=== PATIENT | female | born 1940 | race Caucasian/White ===

== ENCOUNTER 2019-05-28 13:14 | Inpatient (IN) | payer MEDICARE, BC ==
[2019-05-28] MEDS ORDERED: Azithromycin 500 mg/250 ml NS 500 MG/250 ML BAG IVPB ONE (13:27)
[2019-05-28] MEDS ORDERED: Piperacillin/Tazobac ADVAN(*) 3.375 GM in NS 0.9% 100 ML* 100 ML IVPB ONE (13:27)
[2019-05-28] MEDS ORDERED: NS 0.9% IV ONE (13:32)
--- NOTE | 2019-05-28 13:41 | ED ---
Complex/Multi-Sys Presentation - HPI Summary HPI Summary: An 79 y/o F arriving by car presents to ED with c/o hypotension, noted by niece at home to be 55/31. Found to be 70/41 at triage. Associated sx: fatigue, dysphagia. Pert PMHx: malignant neoplasm of cheek mucous membrane, squamous CA of skin and scalp. Pt is s/p chemotherapy at [facility] She receives radiation Rx in [place] and had recent surgery to her left neck. She has a bandage on her L neck under which is a wound that tunnels to inside her mouth and has drainage. Denies CP, SOB abd pain, nausea. Former smoker, no ETOH, no substance abuse. She now sees an oncologist in [place] and her last two radiation appointments are tomorrow and the next day. PMHx: DM, HTN, thyroid dz; she denies COPD. Patient has had multiple abd surgeries for diverticulitis where pt had a colostomy that was reversed and then needed more bowel resection, had a colostomy that was again reversed. Pt also had 3 hernia operations. Pt is on Eliquis for bilateral DVT's. Vitals at bedside: HR: 82 bpm, BP: 86/47, 90% O2. Home Medications Medication Instructions Recorded Confirmed Type Apixaban* [Eliquis*] 5 mg PO BID 05/28/19 05/28/19 History Cephalexin CAP* [Keflex 500 CAP*] 500 mg PO BID 05/28/19 05/28/19 History Levothyroxine TAB* [Synthroid TAB*] 150 mcg PO DAILY 05/28/19 05/28/19 History Morphine TAB (NF) [Morphine 30 MG 30 mg PO Q8HR PRN 05/28/19 05/28/19 History TAB (NF)] Oxycodone TAB(NF) [Oxycodone HCl 5 mg PO Q6H PRN 05/28/19 05/28/19 History 10 MG] - History Of Current Complaint Chief Complaint: EDWeakness Hx Obtained From: Patient, Other: - 2 nieces Onset/Duration: Still Present Timing: Constant Severity Currently: Severe Severity Initially: Severe Location: Pain At: - left neck Character: Dull Aggravating Factor(s): Nothing Alleviating Factor(s): Nothing Associated Signs And Symptoms: Positive: Other - pos: fatigue, dysphagia, weeping wound on L neck; neg CP, SOB, cough, fever, urinary sxs. Negative: Nausea, Abdominal Pain - Allergies/Home Medications Allergies/Adverse Reactions: Allergies Allergy/AdvReac Type Severity Reaction Status Date / Time No Known Allergies Allergy Verified 05/28/19 15:21 Home Medications: Home Medications Apixaban* [Eliquis*] 5 mg PO BID 05/28/19 [History Confirmed 05/28/19] Cephalexin CAP* [Keflex 500 CAP*] 500 mg PO BID 05/28/19 [History Confirmed ] Levothyroxine TAB* [Synthroid TAB*] 150 mcg PO DAILY 05/28/19 [History Confirmed 05/28/19] Morphine TAB (NF) [Morphine 30 MG TAB (NF)] 30 mg PO Q8HR PRN 05/28/19 [History Confirmed 05/28/19] Oxycodone TAB(NF) [Oxycodone HCl 10 MG] 5 mg PO Q6H PRN 05/28/19 [History Confirmed 05/28/19] PMH/Surg Hx/FS Hx/Imm Hx Previously Healthy: No Endocrine/Hematology History: Reports: Hx Diabetes Cardiovascular History: Reports: Hx Hypertension - ON MEDS Denies: Hx Pacemaker/ICD GI History: Reports: Hx Diverticulosis - and diverticulitis, s/p bowel resection x 2 with colostomy reversal x 2 History: Denies: Hx Dialysis, Hx Renal Disease Sensory History: Denies: Hx Hearing Aid Psychiatric History: Denies: Hx Panic Disorder - Cancer History Cancer Type, 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 - Surgical History Surgical History: Yes Surgery Procedure, Year, and Place: CATARACTS; 09/28/18 ORAL SURGERY AND LYMPH NODES REMOVED FROM NEAR J[place]; LUMPECTOMY AND LYMPH NODES REMOVED FROM [place] ( LEFT); 2005- DIVERTICULITIS- COLON REMOVED; COLOSTOMY THEN REVERSAL; HERNIA REPAIRS; HYSTERECTOMY; THYRIODECTOMY Infectious Disease History: No Infectious Disease History: Denies: Traveled Outside the [place] in Last 30 Days - Family History Known Family History: Positive: Cardiac Disease Family History: neg: CA - Social History Occupation: Retired Lives: Alone Alcohol Use: None Hx Substance Use: No Hx Tobacco Use: Yes Smoking Status (MU): Former Smoker Review of Systems Positive: Fatigue Positive: Other - pos: dysphagia, weeping wound with hole to her mouth in her left neck Positive: Other - pos: hypotensive, neg chest pain Respiratory: Negative Negative: Abdominal Pain, Nausea Positive: no symptoms reported Musculoskeletal: Negative Skin: Other - pos: weeping wound on L neck than tunnels to her mouth Neurological: Negative Psychological: Normal All Other Systems Reviewed And Are Negative: Yes Physical Exam - Summary Physical Exam Summary: Appearance: Ill-appearing, moderate pain distress, thin, hypotensive, but awake and able to give clear hx. Speech is difficult to understand due to being edentulous and sound is muffled by wound, hypoxic on room air at 77% Skin: Warm, dry, acrocyanosis of bilat toes and MTP joints; large weeping, tunneling wound on L infra-mandibular area Head: Normal Head/Face inspection, atraumatic, edentulous Eyes: Conjunctiva clear ENT: neck wound as above Neck: Supple, wound as above on left Respiratory: Lungs clear, decreased breath sounds throughout, no accessory muscles Cardio: RRR, No murmur, pulses normal, brisk capillary refill Abdomen: Soft, nontender, large well healed midline scar on abd Bowel sounds: Present Musculoskeletal: Strength Intact/ROM intact, no calf tenderness, 2+ pitting edema bilaterally Psychological: Normal Neuro: Alert, muscle tone normal, no focal deficit Triage Information Reviewed: Yes Vital Signs On Initial Exam: Initial Vitals Temp Pulse Resp BP Pulse Ox 98.1 F 89 24 70/41 77 05/28/19 13:17 05/28/19 13:17 05/28/19 13:17 05/28/19 13:17 05/28/19 13:17 Vital Signs Reviewed: Yes Diagnostics - Vital Signs Vital Signs Temp Pulse Resp BP Pulse Ox 05/28/19 13:17 98.1 F 89 24 70/41 77 - Laboratory Result Diagrams: 05/28/19 13:47 05/28/19 13:47 Lab Statement: Any lab studies that have been ordered have been reviewed, and results considered in the medical decision making process. - Radiology CXR Radiology Interpretation Completed By: Radiologist Summary of Radiographic Findings: IMPRESSION: FINDINGS SUSPICIOUS FOR RIGHT UPPER LOBE AND RIGHT BASILAR CONSOLIDATION. ED provider has reviewed this report. - CT Chest/Thorax CT Interpretation Completed By: Radiologist Summary of CT Findings: IMPRESSION: No definite evidence of aortic dissection or pulmonary embolus. Airspace disease right upper lobe, right lower lobe and left lower lobe with small to moderate bilateral pleural effusions suggestive of inflammatory changes such as pneumonia. Distended gallbladder is noted. ED provider has reviewed this report. - Ultrasound No standard instances Ultrasound Interpretation Completed By: Radiologist Summary of Ultrasound Findings: GALLBLADDER US IMPRESSION: Cholelithiasis. Calculi in the upper pole of the right kidney. No hydronephrosis. ED provider has reviewed this report. - EKG 1328 Cardiac Rate: NL - 81 bpm EKG Rhythm: Sinus Rhythm ST Segment: Non-Specific Ectopy: None EKG Comparison: Other - no prior to compare Summary of EKG Findings: Sinus rhythm, nml MAGDALENA CT, nml QTc, and LAD (-22), non- specific T-waves. No acute changes. Re-Evaluation - Re-Evaluation 1 Re-Evaluation Time: 14:24 Change: Unchanged Comment: Lying comfortably. Vitals at bedside: BP: 92/52, HR: 73 bpm. On vapotherm with O2 sats low to mid 90's. 2 Re-Evaluation Time: 16:12 Change: Unchanged Comment: Discussing with patient and niece plans for admission. BP is 107 systolic, O2 sat: 100%, she's on 10 L O2. She receives oncology radiation in [place], her last treatments were five and six days ago. Third Eval Re-Evaluation Time: 18:35 Change: Worse Comment: Pt's BP is 70/43. EBEN Estrella notified and she re-evaluated pt. Order for norepinephrine placed. Additional fluid bolus with LR ordered also. Re-eval by Delores EVENT SPECIALIST FOOD DEMONSTRATOR states systolic BP is 90. Will cancel norepinephrine at this time. Complex Multi-Symp Course/Dx Course Of Treatment: Patient is an 79 y/o oral CA patient presenting hypotensive and hypoxic with fatigue and dysphagia. Pt had surgery on her L neck and has a weeping wound. Her oncologist is in [place] and she receives radiation therapy there, after having received chemotherapy at [facility]. Per patient' s neice, the patient has known bilateral DVTs and is on Eliquis. Allergies noted. Pt medications reviewed this visit. Nurses note reviewed. Lab results show: WBC: 11.8, INR: 3.07, APPT: 41.5, BUN: 44, Creatinine: 1.18, BUN/C ratio: 37.3, CRP: 116.07, BNP: 220, total protein: 5.2, albumin: 1.7. Calcium: 6.7. Blood gas is without significant abnormality except base excess: -4.9. Neck cultures are negative for MRSA and S. aureus. CXR shows "FINDINGS SUSPICIOUS FOR RIGHT UPPER LOBE AND RIGHT BASILAR CONSOLIDATION." EKG of NSR at 81 bpm reveals nml [address], nml QTc, and LAD (-22), non-specific T-waves. No acute changes. Chest / Thorax CT done because of hypoxia and hx bilateral DVT's, despite Eliquis therapy, shows "No definite evidence of aortic dissection or pulmonary embolus. Airspace disease right upper lobe, right lower lobe and left lower lobe with small to moderate bilateral pleural effusions suggestive of inflammatory changes such as pneumonia. Distended gallbladder is noted." GALLBLADDER US (done for finding on CTA of distended gallbladder) shows " Cholelithiasis. Calculi in the upper pole of the right kidney. No hydronephrosis.". Consulted with Nikko Shelby, oncology, who recommends speaking with hospitalist for admission. Consulted with Dr. Murphy, hospitalist, who will admit patient. Pt started on sepsis protocol immediately, started on Zosyn and azithromycin for pneumonia, vapotherm for hypoxia and admitted to hospitalist. - Diagnoses Differential Diagnoses/HQI/PQRI: Metabolic Abnormality, Urinary Tract Infection , Other - pneumonia Provider Diagnoses: Hypoxia, Hypotension, PNA (pneumonia), History of deep vein thrombosis of lower extremity, Severe sepsis, CKD (chronic kidney disease) stage 3, GFR 30-59 ml/min - Physician Notifications Discussed Care Of Patient With: Nikko Shelby - oncology Time Discussed With Above Provider: 15:41 Instructed by Provider To: Other - Consult with hospitalist for admission. - Critical Care Time Critical Care Time: 30-74 min - 30 mins Discharge - Sign-Out/Discharge Documenting (check all that apply): Patient Departure - ADMIT ICU All imaging exams completed and their final reports reviewed: Yes Patient Received Moderate/Deep Sedation with Procedure: No - Discharge Plan Condition: Stable Disposition: ADMITTED TO [facility] - Billing Disposition and Condition Condition: STABLE Disposition: Admitted to [facility] - Attestation Statements Document Initiated by Scribe: Yes Documenting Scribe: SooYoung VanDeMark Provider For Whom Scribe is Documenting (Include Credential): Dr. Eri Ng MD Scribe Attestation: I, Manjeet Payne, scribed for Dr. Eri Ng MD on 05/28/19 at 2232. Scribe Documentation Reviewed: Yes Provider Attestation: The documentation as recorded by the osmin, Manjeet Payne accurately reflects the service I personally performed and the decisions made by me, Dr. Eri Ng MD Status of Scribe Document: Viewed Consult Consult: 1543: Consult with Dr. Murphy, hospitalist Will admit patient.
[2019-05-28 13:58] LABS: Hematocrit 37 % (35-47); Hemoglobin 12.1 g/dL (12.0-16.0); Mean Corpuscular HGB Conc 33 g/dL (31-36); Mean Corpuscular Hemoglobin 28 pg (27-31); Mean Corpuscular Volume 85 fL (80-97); Mean Platelet Volume 6.9 fL (7.4-10.4); Platelet Count 279 10^3/uL (150-450); Red Cell Distribution Width 19 % (10-15); White Blood Count 11.8 10^3/uL (3.5-10.8)
[2019-05-28 14:06] LABS: Activated Partial Thrombo Time 41.5 seconds (26.0-38.0); INR 3.07 (0.82-1.09)
[2019-05-28 14:17] LABS: Albumin 1.7 g/dL (3.2-5.2); Albumin/Globulin Ratio 0.5 (1-3); BUN/Creatinine Ratio 37.3 (8-20); C Reactive Protein 116.07 mg/L (<8.01); Calcium 6.7 mg/dL (8.6-10.3); EGFR African American 53.2 (>60); Globulin 3.5 g/dL (2-4); Potassium 3.6 mmol/L (3.5-5.0); Total Bilirubin 0.4 mg/dL (0.2-1.0); Total Protein 5.2 g/dL (6.4-8.9); Troponin I 0.01 ng/mL (<0.04)
[2019-05-28 14:18] LABS: ABS Lymphocytes 0.3 10^3/ul (1.0-4.8); ABS Monocytes 0.3 10^3/ul (0-0.8); ABS Neutrophils 11.2 10^3/ul (1.5-7.7); Lymphocyte % 2.4 %
[2019-05-28] MEDS ORDERED: Iodixanol* (CONTRAST) 320 MG/ML 100 ML SDV IV ONE (15:04)
[2019-05-28] MEDS ORDERED: Albuterol 2.5 MG/3 ML NEB.SOL* (0.083%) INH PRN (18:12)
[2019-05-28] MEDS ORDERED: Acetaminophen TAB* 325 MG PO PRN (18:12)
[2019-05-28] MEDS ORDERED: NS 0.9% 1000 ML** 1,000 ML IV SCH (18:15)
[2019-05-28] MEDS: Lactated Ringers 1000 ML Bag* 1,000 ML IV ONE ×2 (18:41→20:02)
[2019-05-28] MEDS ORDERED: Lactated Ringers 1000 ML Bag* 1,000 ML IV SCH (18:48)
[2019-05-28] MEDS ORDERED: Norepinephrine VIAL* 8 MG in NS 0.9% 500 ML* 492 ML IV SCH (19:00)
[2019-05-28] MEDS ORDERED: Zosyn per Pharmacy* NOTE FOLLOW UP SCH (19:00)
[2019-05-28] MEDS: ZOSYN 3.375 GM Q8H per EXTENDED INFUSION IVPB SCH ×2 (20:02)
[2019-05-28] MEDS: Apixaban* 5 MG TAB PO SCH (21:40)
--- NOTE | 2019-05-29 01:39 | HP ---
CC: Dr. Gomez * HISTORY AND PHYSICAL: DATE OF ADMISSION: 05/28/19 PRIMARY CARE PROVIDER: Dr. Gomez. PROVIDER: Delores Wetzel NP ATTENDING PHYSICIAN WHILE IN THE HOSPITAL: Dr. Arturo Murphy * (dictated by Delores Wetzel NP). CHIEF COMPLAINT: Weakness. Presented to the ED by private vehicle, at triage had a blood pressure of 55/31. HISTORY OF PRESENT ILLNESS: Ms. Stanford is an 79-year-old female. 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 The patient reports that she has felt weak for approximately 7 weeks , progressively worse over the past 2 days. The patient reports that she is not eating much. She reports she is eating 1 can of Ensure daily. She reports that she is unable to tolerate solid foods due to the pain with swallowing and that she is only able to tolerate liquids. The patient also reports that she was recently diagnosed with bilateral DVTs last Wednesday and was stared on Eliquis. She also reports that she had recent course of antibiotics for infection in her left neck. She completed a 14-day course of Keflex, which was initially started on 05/11/19. The patient reports that she has been receiving radiation for the past 7 weeks and had 2 more doses of radiation to complete her full course that were scheduled for Wednesday and Wednesday. She is followed by Oncology in [place] for her cancer treatments. In the emergency room, the patient was found to be hypotensive and she had a CT of the chest which was concerning for pneumonia. She did meet for severe sepsis with hypotension, elevated lactic acid of 2.1, tachypnea with respirations of 24, and hypotension with blood pressures in the 70s and 80s. Due to these findings, we were asked to see and evaluate the patient for admission. PAST MEDICAL HISTORY: Significant for: 1. Hypothyroid. 2. Carcinoma of the cheek, jaw, and neck. She does have a known spot in her lung as well. The patient reports no issue with the spot in the lung. 3. Diverticulosis. 4. History of breast cancer, status post radiation 6 years ago. PAST SURGICAL HISTORY: 1. She had left neck and cheek surgery for cancer treatment. 2. Tonsillectomy. 3. Hysterectomy. 4. Appendectomy. 5. Hernia repair. 6. Bowel resection. 7. Left breast lumpectomy. HOME MEDICATIONS: Include: 1. Oxycodone 5 mg p.o. q.6 hours. 2. Morphine 30 mg p.o. q.8 hours. 3. Levothyroxine 150 mcg p.o. daily. 4. Eliquis 5 mg p.o. b.i.d. ALLERGIES: No known drug allergies. FAMILY HISTORY: Father with a history of CHF, mother with diabetes, brother from leukemia. SOCIAL HISTORY: The patient reports she quit smoking 25 years ago, prior to that she smoked a pack and a half a day for 44 years. Denies any alcohol or illicit drug use. She is retired. She lives alone. Surrogate decision maker in the event she is unable to make her own decision is her nieces, Namrata or Molly. She is a full code. REVIEW OF SYSTEMS: She denies any fever or chills. She does report feeling cold. She denies any unintended weight loss. Does report she is unable to tolerate solid foods and has been maintaining nutrition with Ensure, but only drinks approximately 1 can per day. Denies any chest pain. She does report some mild edema to her feet and lower legs. She does report occasional cough. Denies any hemoptysis or shortness of breath. No nausea or vomiting. She does report diarrhea once a day. She reports it as a loose stool. Denies any abdominal pain. No gross hematuria, dysuria, or focal weakness, she has got generalized weakness. No sensory loss. Denies any visual complaints. She does report coughing with swallowing liquids. She does also complain of painful swallowing since starting her radiation. Denies any arthralgias or myalgias. She does have an open area noted to her left neck. She does report secretions when she is drinking, white discoloration secretions are noted coming from the open area, the surrounding area is red. Denies any psychosis or anxiety. PHYSICAL EXAMINATION GENERAL: At this time, Ms. Stanford is an 79-year-old female. She is resting comfortably on the stretcher in the emergency room. VITAL SIGNS: Blood pressure is 90/40, heart rate is 69, respirations are 12, O2 saturation is 98% on 10 L facemask, her temperature is 100.0. HEENT: Head is atraumatic, normocephalic. Eyes: EOMs are intact. Sclerae anicteric and not pale. Oral mucosa is dry. NECK: She does have an open wound noted to her left neck, surrounding skin discoloration and scar tissue. She is noted to have white drainage coming from the open wound on the left side of her neck. LUNGS: Diminished throughout bilaterally. Respirations are easy and even. CARDIAC: S1 and S2. Regular rate and rhythm. No murmurs, rubs, or gallops. She does have a Mediport noted to the left chest. ABDOMEN: Soft and nontender. Bowel sounds are present x4. MUSCULOSKELETAL: She is able to move all 4 extremities. Her great toes do have purplish discoloration. Capillary refill is 3 seconds. She does have 2+ pitting edema noted to her feet. NEUROLOGIC: She is awake, alert, and oriented x3. Speech is clear. Thought process is intact. There are no gross focal deficits. SKIN: She does have an open wound noted to her left neck with some surrounding scar tissue and mild erythema with white drainage noted from the open wound. Her coccyx was also reddened. DIAGNOSTIC STUDIES/LAB DATA: WBCs are 11.8, RBCs 4.30, hemoglobin 12.1, hematocrit is 37, platelet count is 279. INR was 3.07. ABG: pH was 7.36, PCO2 was 35, PO2 was 83, HCO3 was 21.1, O2 saturation was 97.5. Sodium 140; potassium 3.6; chloride 110; carbon dioxide was 21; anion gap was 9; BUN was 44 ; creatinine 1.18; glucose was 104; lactic acid was 2.1, repeat was 1.4; calcium was 6.7. Total bili was 0.40, ASTs were 16, ALTs were 10, alkaline phosphatase is 106. Total CK was 19. Troponin 0.01. C-reactive protein was 116.07. BNP was 220. Albumin was 1.7. She had a chest x-ray, radiologist's impression: Findings suspicious for right upper lobe and right basilar consolidation. She had a CTA of the chest, radiologist's impression: No definite evidence of aortic dissection or pulmonary embolism. Airspace disease in the right upper lobe, right lower lobe, and left lower lobe with [id number] bilateral pleural effusions suggestive of inflammatory changes such as pneumonia. Stent in the gallbladder was noted. She had an ultrasound of her gallbladder, radiologist's impression: Cholelithiasis, calculi in the upper pole of the right kidney. No hydronephrosis. She had an electrocardiogram, which showed sinus rhythm at a rate of 81. ASSESSMENT AND PLAN: Ms. Stanford is an 79-year-old female with past medical history significant for carcinoma of the cheek, jaw, and neck; hypothyroid; diverticulitis; history of breast cancer, status post radiation 6 years ago, who presented to the emergency room with complaints of generalized weakness, presyncope. She will be admitted inpatient for: 1. Severe sepsis. The patient meets severe sepsis with white count of 11.8, tachypnea with respirations of 24, suspected source of bilateral pneumonia, hypotension, and elevated lactic acid of 2.1. She was given 30 cc/kg bolus in the emergency room which her blood pressure did improve after bolusing to 90/ 40. She did have a repeat lactic acid that was 1.4 given the hypotension. I will give her another bolus of 1000 cc of lactated Ringer's and continue her on lactated Ringer's at 100 cc per hour. She did receive Zosyn in the emergency room as she does have a concern for aspiration pneumonia as the patient does report choking when drinking her Ensure and coughing. If the patient has any further persistent hypotension, we should consider vasopressors at that time. 2. Acute kidney injury. The patient does have an acute kidney injury. As suspected this is related to dehydration as the patient reports that she has poor fluid and p.o. intake as she reports pain with swallowing since receiving radiation to her neck for cancer. The patient also reports that when she swallows her Ensure, it does leak out the open wound on the side of her neck. So, I suspect the acute kidney injury is related to her sepsis as well as underlying dehydration. She did receive fluid bolusing in the emergency room and I will continue her on IV fluids overnight. We will repeat a BMP in the a.m. We will avoid nephrotoxic medications. 3. Hypotension. I suspect her hypotension is related to severe sepsis related to underlying bilateral pneumonia. She did receive Zosyn in the emergency room. We will continue her on Zosyn due to concern of aspiration pneumonia. I also think that she is also dehydrated and this could be a contributing factor to her hypotension. We will continue IV fluids. 4. Hypothyroidism. She should continue on levothyroxine as previously prescribed. 5. Hypocalcemia. The patient does have a calcium level of 6.7, corrected calcium level is 8.5 due to her albumin being 1.7. 6. Bilateral deep venous thrombosis. This patient was recently diagnosed with bilateral deep venous thrombosis and started on Eliquis 5 mg p.o. b.i.d. We will continue her on Eliquis as previously prescribed. 7. Diagnosis of neck, jaw, and cheek carcinoma. The patient is currently receiving radiation for the carcinoma. We will continue with supportive care at this time. 8. Open wound to left neck. We have a sent a culture. We will treat based on culture of the left neck wound. 9. FEN: She can have a liquid diet as the patient reports she is unable to tolerate solid foods due to the pain with swallowing since the start of her radiation. 10. Code status: She is a full code. 11. DVT prophylaxis: At this point, SCDs are contraindicated due to bilateral lower leg deep venous thrombosis. I will continue her on Eliquis 5 mg p.o. b.i.d. for chemical DVT prophylaxis. 12. Disposition: The patient will be placed inpatient in the ICU. TIME SPENT: Time spent on this admission was approximately 65 minutes, greater than half that time was spent at the bedside reviewing events leading thus far to her hospitalization, performing physical exam, and reviewing my plan of care. I have discussed this with my attending, Dr. Arturo Murphy; he is in agreement with my plan. DELORES WETZEL, EBEN [id number]/[facility] #: [id number] JUAN J
[2019-05-29] MEDS: ZOSYN 3.375 GM Q8H per EXTENDED INFUSION IVPB SCH ×6 (03:17→19:27)
[2019-05-29] MEDS ORDERED: NS 0.9% 500 ML* 500 ML IV ONE (03:24)
[2019-05-29 04:39] LABS: Urine Appearance Cloudy; Urine Bacteria 1+ (Absent); Urine Bilirubin Negative (Negative); Urine Blood 2+ (Negative); Urine Color Amber; Urine Glucose Negative (Negative); Urine Ketones Negative (Negative); Urine Nitrite Positive (Negative); Urine Protein Negative (Negative); Urine Red Blood Cell 2+(6-10/hpf) (Absent); Urine Specific Gravity 1.024 (1.010-1.030); Urine Urobilinogen Negative (Negative); Urine White Blood Cell 3+(>20/hpf) (Absent)
[2019-05-29 05:29] LABS: ABS Lymphocytes 0.5 10^3/ul (1.0-4.8); ABS Monocytes 0.4 10^3/ul (0-0.8); Hematocrit 32 % (35-47); Hemoglobin 10.7 g/dL (12.0-16.0); Lymphocyte % 2.3 %; Mean Corpuscular HGB Conc 33 g/dL (31-36); Mean Corpuscular Hemoglobin 28 pg (27-31); Mean Corpuscular Volume 84 fL (80-97); Mean Platelet Volume 6.7 fL (7.4-10.4); Platelet Count 333 10^3/uL (150-450); Red Blood Count 3.82 10^6 /uL (3.70-4.87); Red Cell Distribution Width 19 % (10-15); White Blood Count 19.9 10^3/uL (3.5-10.8)
[2019-05-29 05:49] LABS: BUN/Creatinine Ratio 38.7 (8-20); EGFR African American 60.2 (>60); EGFR Non-African American 49.8 (>60); Potassium 3.5 mmol/L (3.5-5.0)
[2019-05-29] MEDS: Levothyroxine TAB* 150 MCG TAB PO SCH (06:15)
[2019-05-29] MEDS: oxyCODONE TAB* 5 MG TAB PO PRN ×2 (06:15→17:09)
[2019-05-29] MEDS ORDERED: Norepinephrine VIAL* 8 MG in NS 0.9% 500 ML* 492 ML IV SCH (07:00)
[2019-05-29] MEDS ORDERED: Calcium Gluconate INJ* 1 GM in NS 0.9% 50 ML* 50 ML IVPB ONE (07:06)
[2019-05-29] MEDS: Apixaban* 5 MG TAB PO SCH ×2 (09:50→20:57)
--- NOTE | 2019-05-29 10:56 | PN ---
Date of Service: 05/29/19 Critical Care Services: off Levophed. Sitting in chair. Comfortable AF. Hemodynamically stable. Left cheek area malodorous and with pus present Vital Signs: Temp Pulse Resp BP SpO2 FiO2 97.2 F 71 15 93/68 97 100 05/29/19 10:00 05/29/19 10:00 05/29/19 10:00 05/29/19 10:00 05/29/19 10:00 05/29 08:00 Physical Exam: Gen:NAD. HEENT: Several CM left cheek lesion with pus at wound site. malodorous Lungs:CTA B/L Cardiac: RRR Abdomen: +BS's. Soft, NTP Extremities: No ISAIAH Neuro:moving all extremities Fluid Balance (Past 24 Hours): I= O= Net Intake & Output 05/27/19 05/28/19 05/29/19 05/30/19 06:59 06:59 06:59 06:59 Intake Total 4149 Output Total 347 25 Balance 3802 -25 Weight 113 lb Intake: IV Fluids 3603 NS (0.9%) 1153 IVPB 143 ABX - PIPERACILLIN 143 Medicated IV 403 CC - Norepinephrine/ 403 Levophed Output: Ibarra 347 25 Labs: Laboratory Results - last 24 hr 05/28/19 05/28/19 05/28/19 13:47 13:47 13:47 WBC 11.8 H RBC 4.30 Hgb 12.1 Hct 37 MCV 85 MCH 28 MCHC 33 RDW 19 H Plt Count 279 MPV 6.9 L Neut % (Auto) 95.0 Lymph % (Auto) 2.4 Richardson % (Auto) 2.6 Eos % (Auto) 0.0 Baso % (Auto) 0.0 Absolute Neuts (auto) 11.2 H Absolute Lymphs (auto) 0.3 L Absolute Monos (auto) 0.3 Absolute Eos (auto) 0.0 Absolute Basos (auto) 0.0 Absolute Nucleated RBC 0.0 Immature Gran % 24.0 H Neutrophils % 74.0 Band Neutrophils % 24.0 H Lymphocytes % 1.0 Monocytes % 1.0 Nucleated RBC % 0.0 Normal RBC Morphology Normal INR (Anticoag Therapy) 3.07 H APTT 41.5 H ABG pH ABG pCO2 ABG pO2 ABG HCO3 ABG O2 Saturation ABG Base Excess Sodium 140 Potassium 3.6 Chloride 110 Carbon Dioxide 21 L Anion Gap 9 BUN 44 H Creatinine 1.18 H Est GFR ( Amer) 53.2 Est GFR (Non-Af Amer) 44.0 BUN/Creatinine Ratio 37.3 H Glucose 104 H Lactic Acid Calcium 6.7 L Total Bilirubin 0.40 AST 16 ALT 10 Alkaline Phosphatase 106 H Total Creatine Kinase 19 Troponin I 0.01 C-Reactive Protein 116.07 H B-Natriuretic Peptide Total Protein 5.2 L Albumin 1.7 L Globulin 3.5 Albumin/Globulin Ratio 0.5 L Urine Color Urine Appearance Urine pH Ur Specific [place] Urine Protein Urine Ketones Urine Blood Urine Nitrate Urine Bilirubin Urine Urobilinogen Ur Leukocyte Esterase Urine WBC (Auto) Urine RBC (Auto) Urine Bacteria Hyaline Casts Urine Glucose 05/28/19 05/28/19 05/28/19 13:47 13:47 15:08 WBC RBC Hgb Hct MCV MCH MCHC RDW Plt Count MPV Neut % (Auto) Lymph % (Auto) Richardson % (Auto) Eos % (Auto) Baso % (Auto) Absolute Neuts (auto) Absolute Lymphs (auto) Absolute Monos (auto) Absolute Eos (auto) Absolute Basos (auto) Absolute Nucleated RBC Immature Gran % Neutrophils % Band Neutrophils % Lymphocytes % Monocytes % Nucleated RBC % Normal RBC Morphology INR (Anticoag Therapy) APTT ABG pH 7.36 ABG pCO2 35 ABG pO2 83 ABG HCO3 21.1 ABG O2 Saturation 97.5 ABG Base Excess -4.9 L Sodium Potassium Chloride Carbon Dioxide Anion Gap BUN Creatinine Est GFR ( Amer) Est GFR (Non-Af Amer) BUN/Creatinine Ratio Glucose Lactic Acid 2.1 H* Calcium Total Bilirubin AST ALT Alkaline Phosphatase Total Creatine Kinase Troponin I C-Reactive Protein B-Natriuretic Peptide 220 H Total Protein Albumin Globulin Albumin/Globulin Ratio Urine Color Urine Appearance Urine pH Ur Specific [place] Urine Protein Urine Ketones Urine Blood Urine Nitrate Urine Bilirubin Urine Urobilinogen Ur Leukocyte Esterase Urine WBC (Auto) Urine RBC (Auto) Urine Bacteria Hyaline Casts Urine Glucose 05/28/19 05/29/19 05/29/19 16:20 03:48 05:21 WBC RBC Hgb Hct MCV MCH MCHC RDW Plt Count MPV Neut % (Auto) Lymph % (Auto) Richardson % (Auto) Eos % (Auto) Baso % (Auto) Absolute Neuts (auto) Absolute Lymphs (auto) Absolute Monos (auto) Absolute Eos (auto) Absolute Basos (auto) Absolute Nucleated RBC Immature Gran % Neutrophils % Band Neutrophils % Lymphocytes % Monocytes % Nucleated RBC % Normal RBC Morphology INR (Anticoag Therapy) APTT ABG pH ABG pCO2 ABG pO2 ABG HCO3 ABG O2 Saturation ABG Base Excess Sodium 141 Potassium 3.5 Chloride 115 H Carbon Dioxide 18 L Anion Gap 8 BUN 41 H Creatinine 1.06 H Est GFR ( Amer) 60.2 Est GFR (Non-Af Amer) 49.8 BUN/Creatinine Ratio 38.7 H Glucose 110 H Lactic Acid 1.4 Calcium 6.0 L* Total Bilirubin AST ALT Alkaline Phosphatase Total Creatine Kinase Troponin I C-Reactive Protein B-Natriuretic Peptide Total Protein Albumin Globulin Albumin/Globulin Ratio Urine Color Jessica Urine Appearance Cloudy Urine pH 5.0 Ur Specific [place] 1.024 Urine Protein Negative Urine Ketones Negative Urine Blood 2+ A Urine Nitrate Positive A Urine Bilirubin Negative Urine Urobilinogen Negative Ur Leukocyte Esterase 1+ A Urine WBC (Auto) 3+(>20/hpf) A Urine RBC (Auto) 2+(6-10/hpf) A Urine Bacteria 1+ A Hyaline Casts Present A Urine Glucose Negative 05/29/19 05:21 WBC 19.9 H RBC 3.82 Hgb 10.7 L Hct 32 L MCV 84 MCH 28 MCHC 33 RDW 19 H Plt Count 333 MPV 6.7 L Neut % (Auto) 95.7 Lymph % (Auto) 2.3 Richardson % (Auto) 1.9 Eos % (Auto) 0.0 Baso % (Auto) 0.1 Absolute Neuts (auto) 19.0 H Absolute Lymphs (auto) 0.5 L Absolute Monos (auto) 0.4 Absolute Eos (auto) 0.0 Absolute Basos (auto) 0.0 Absolute Nucleated RBC 0.0 Immature Gran % Neutrophils % Band Neutrophils % Lymphocytes % Monocytes % Nucleated RBC % 0.0 Normal RBC Morphology INR (Anticoag Therapy) APTT ABG pH ABG pCO2 ABG pO2 ABG HCO3 ABG O2 Saturation ABG Base Excess Sodium Potassium Chloride Carbon Dioxide Anion Gap BUN Creatinine Est GFR ( Amer) Est GFR (Non-Af Amer) BUN/Creatinine Ratio Glucose Lactic Acid Calcium Total Bilirubin AST ALT Alkaline Phosphatase Total Creatine Kinase Troponin I C-Reactive Protein B-Natriuretic Peptide Total Protein Albumin Globulin Albumin/Globulin Ratio Urine Color Urine Appearance Urine pH Ur Specific [place] Urine Protein Urine Ketones Urine Blood Urine Nitrate Urine Bilirubin Urine Urobilinogen Ur Leukocyte Esterase Urine WBC (Auto) Urine RBC (Auto) Urine Bacteria Hyaline Casts Urine Glucose Impression: 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 get old records from [place] to see for past infections and resistance. Cheek lesion cultures and results pending ID consult Continue IVF's Swallow evaluation - at baseline has to use straw to take PO intake Dietary consult replenish Calcium May transfer to floor Critical Care Time: 56 minutes
--- NOTE | 2019-05-29 12:29 | CONSULT ---
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 PMH is significant for hypothroidism, diverticulosis, L lung hamartoma and h/o breast ca s/p radiation 6 yrs ago. Pt moved to [place] from [place] after her . She lives alone. Her 6yrs ago from esophageal cancer and was on hospice 1 day prior to dying. She is an ex tob user, no etoh, no drug use and has no children but does have family in the area. Studies show ekg-nsr, CTA no PE or dissection, CXR-RUL & R basilar consolidation, GB U/S cholelithiasis, hepatic steatosis, calculi R kidney, H/H 10.7/32, BUN/Cr 41/1.06 egfr 49.8, Ca 6.7, tprot 5.2 and alb 1.7. All history is from pt and medical records. 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 She has received radiation for past 7 wks and has 2 treatments left when she got sick. It looks as if the cancer is spreading but she is not a surgical candidate or a candidate for further RT/MARKET CONSULTANT according to records from [place] where she gets her care. Pt had been scheduled a palliative care consult in [place] for later this week. Lab Values: Abnormal Lab Results 05/28/19 05/28/19 05/28/19 13:47 13:47 13:47 WBC 11.8 H RBC 4.30 Hgb 12.1 Hct 37 MCV 85 MCH 28 MCHC 33 RDW 19 H Plt Count 279 MPV 6.9 L Neut % (Auto) 95.0 Lymph % (Auto) 2.4 [place] % (Auto) 2.6 Eos % (Auto) 0.0 Baso % (Auto) 0.0 Absolute Neuts (auto) 11.2 H Absolute Lymphs (auto) 0.3 L Absolute Monos (auto) 0.3 Absolute Eos (auto) 0.0 Absolute Basos (auto) 0.0 Absolute Nucleated RBC 0.0 Immature Gran % 24.0 H Neutrophils % 74.0 Band Neutrophils % 24.0 H Lymphocytes % 1.0 Monocytes % 1.0 Nucleated RBC % 0.0 Normal RBC Morphology Normal INR (Anticoag Therapy) 3.07 H APTT 41.5 H ABG pH ABG pCO2 ABG pO2 ABG HCO3 ABG O2 Saturation ABG Base Excess Sodium 140 Potassium 3.6 Chloride 110 Carbon Dioxide 21 L Anion Gap 9 BUN 44 H Creatinine 1.18 H Est GFR ( Amer) 53.2 Est GFR (Non-Af Amer) 44.0 BUN/Creatinine Ratio 37.3 H Glucose 104 H Lactic Acid Calcium 6.7 L Total Bilirubin 0.40 AST 16 ALT 10 Alkaline Phosphatase 106 H Total Creatine Kinase 19 Troponin I 0.01 C-Reactive Protein 116.07 H B-Natriuretic Peptide Total Protein 5.2 L Albumin 1.7 L Globulin 3.5 Albumin/Globulin Ratio 0.5 L Urine Color Urine Appearance Urine pH Ur Specific [place] Urine Protein Urine Ketones Urine Blood Urine Nitrate Urine Bilirubin Urine Urobilinogen Ur Leukocyte Esterase Urine WBC (Auto) Urine RBC (Auto) Urine Bacteria Hyaline Casts Urine Glucose 05/28/19 05/28/19 05/28/19 13:47 13:47 15:08 WBC RBC Hgb Hct MCV MCH MCHC RDW Plt Count MPV Neut % (Auto) Lymph % (Auto) [place] % (Auto) Eos % (Auto) Baso % (Auto) Absolute Neuts (auto) Absolute Lymphs (auto) Absolute Monos (auto) Absolute Eos (auto) Absolute Basos (auto) Absolute Nucleated RBC Immature Gran % Neutrophils % Band Neutrophils % Lymphocytes % Monocytes % Nucleated RBC % Normal RBC Morphology INR (Anticoag Therapy) APTT ABG pH 7.36 ABG pCO2 35 ABG pO2 83 ABG HCO3 21.1 ABG O2 Saturation 97.5 ABG Base Excess -4.9 L Sodium Potassium Chloride Carbon Dioxide Anion Gap BUN Creatinine Est GFR ( Amer) Est GFR (Non-Af Amer) BUN/Creatinine Ratio Glucose Lactic Acid 2.1 H* Calcium Total Bilirubin AST ALT Alkaline Phosphatase Total Creatine Kinase Troponin I C-Reactive Protein B-Natriuretic Peptide 220 H Total Protein Albumin Globulin Albumin/Globulin Ratio Urine Color Urine Appearance Urine pH Ur Specific [place] Urine Protein Urine Ketones Urine Blood Urine Nitrate Urine Bilirubin Urine Urobilinogen Ur Leukocyte Esterase Urine WBC (Auto) Urine RBC (Auto) Urine Bacteria Hyaline Casts Urine Glucose 05/28/19 05/29/19 05/29/19 16:20 03:48 05:21 WBC RBC Hgb Hct MCV MCH MCHC RDW Plt Count MPV Neut % (Auto) Lymph % (Auto) [place] % (Auto) Eos % (Auto) Baso % (Auto) Absolute Neuts (auto) Absolute Lymphs (auto) Absolute Monos (auto) Absolute Eos (auto) Absolute Basos (auto) Absolute Nucleated RBC Immature Gran % Neutrophils % Band Neutrophils % Lymphocytes % Monocytes % Nucleated RBC % Normal RBC Morphology INR (Anticoag Therapy) APTT ABG pH ABG pCO2 ABG pO2 ABG HCO3 ABG O2 Saturation ABG Base Excess Sodium 141 Potassium 3.5 Chloride 115 H Carbon Dioxide 18 L Anion Gap 8 BUN 41 H Creatinine 1.06 H Est GFR ( Amer) 60.2 Est GFR (Non-Af Amer) 49.8 BUN/Creatinine Ratio 38.7 H Glucose 110 H Lactic Acid 1.4 Calcium 6.0 L* Total Bilirubin AST ALT Alkaline Phosphatase Total Creatine Kinase Troponin I C-Reactive Protein B-Natriuretic Peptide Total Protein Albumin Globulin Albumin/Globulin Ratio Urine Color Jessica Urine Appearance Cloudy Urine pH 5.0 Ur Specific [place] 1.024 Urine Protein Negative Urine Ketones Negative Urine Blood 2+ A Urine Nitrate Positive A Urine Bilirubin Negative Urine Urobilinogen Negative Ur Leukocyte Esterase 1+ A Urine WBC (Auto) 3+(>20/hpf) A Urine RBC (Auto) 2+(6-10/hpf) A Urine Bacteria 1+ A Hyaline Casts Present A Urine Glucose Negative 05/29/19 05:21 WBC 19.9 H RBC 3.82 Hgb 10.7 L Hct 32 L MCV 84 MCH 28 MCHC 33 RDW 19 H Plt Count 333 MPV 6.7 L Neut % (Auto) 95.7 Lymph % (Auto) 2.3 [place] % (Auto) 1.9 Eos % (Auto) 0.0 Baso % (Auto) 0.1 Absolute Neuts (auto) 19.0 H Absolute Lymphs (auto) 0.5 L Absolute Monos (auto) 0.4 Absolute Eos (auto) 0.0 Absolute Basos (auto) 0.0 Absolute Nucleated RBC 0.0 Immature Gran % Neutrophils % Band Neutrophils % Lymphocytes % Monocytes % Nucleated RBC % 0.0 Normal RBC Morphology INR (Anticoag Therapy) APTT ABG pH ABG pCO2 ABG pO2 ABG HCO3 ABG O2 Saturation ABG Base Excess Sodium Potassium Chloride Carbon Dioxide Anion Gap BUN Creatinine Est GFR ( Amer) Est GFR (Non-Af Amer) BUN/Creatinine Ratio Glucose Lactic Acid Calcium Total Bilirubin AST ALT Alkaline Phosphatase Total Creatine Kinase Troponin I C-Reactive Protein B-Natriuretic Peptide Total Protein Albumin Globulin Albumin/Globulin Ratio Urine Color Urine Appearance Urine pH Ur Specific [place] Urine Protein Urine Ketones Urine Blood Urine Nitrate Urine Bilirubin Urine Urobilinogen Ur Leukocyte Esterase Urine WBC (Auto) Urine RBC (Auto) Urine Bacteria Hyaline Casts Urine Glucose Laboratory Last Values WBC 19.9 10^3/uL (3.5-10.8) H 05/29/19 05:21 RBC 3.82 10^6 /uL (3.70-4.87) 05/29/19 05:21 Hgb 10.7 g/dL (12.0-16.0) L 05/29/19 05:21 Hct 32 % (35-47) L 05/29/19 05:21 MCV 84 fL (80-97) 05/29/19 05:21 MCH 28 pg (27-31) 05/29/19 05:21 MCHC 33 g/dL (31-36) 05/29/19 05:21 RDW 19 % (10-15) H 05/29/19 05:21 Plt Count 333 10^3/uL (150-450) 05/29/19 05:21 MPV 6.7 fL (7.4-10.4) L 05/29/19 05:21 Neut % (Auto) 95.7 % 05/29/19 05:21 Lymph % (Auto) 2.3 % 05/29/19 05:21 [place] % (Auto) 1.9 % 05/29/19 05:21 Eos % (Auto) 0.0 % 05/29/19 05:21 Baso % (Auto) 0.1 % 05/29/19 05:21 Absolute Neuts (auto) 19.0 10^3/ul (1.5-7.7) H 05/29/19 05:21 Absolute Lymphs (auto) 0.5 10^3/ul (1.0-4.8) L 05/29/19 05:21 Absolute Monos (auto) 0.4 10^3/ul (0-0.8) 05/29/19 05:21 Absolute Eos (auto) 0.0 10^3/ul (0-0.6) 05/29/19 05:21 Absolute Basos (auto) 0.0 10^3/ul (0-0.2) 05/29/19 05:21 Absolute Nucleated RBC 0.0 10^3/ul 05/29/19 05:21 Immature Gran % 24.0 % (0-9) H 05/28/19 13:47 Neutrophils % 74.0 % 05/28/19 13:47 Band Neutrophils % 24.0 % (0-8) H 05/28/19 13:47 Lymphocytes % 1.0 % 05/28/19 13:47 Monocytes % 1.0 % 05/28/19 13:47 Nucleated RBC % 0.0 05/29/19 05:21 Normal RBC Morphology Normal (Normal) 05/28/19 13:47 INR (Anticoag Therapy) 3.07 (0.82-1.09) H 05/28/19 13:47 APTT 41.5 seconds (26.0-38.0) H 05/28/19 13:47 ABG pH 7.36 (7.35-7.45) 05/28/19 15:08 ABG pCO2 35 mmHg (35-45) 05/28/19 15:08 ABG pO2 83 mmHg (80-100) 05/28/19 15:08 ABG HCO3 21.1 mmol/L (19-31) 05/28/19 15:08 ABG O2 Saturation 97.5 % (94.0-98.0) 05/28/19 15:08 ABG Base Excess -4.9 mmol/L (-2.0-2.0) L 05/28/19 15:08 Sodium 141 mmol/L (135-145) 05/29/19 05:21 Potassium 3.5 mmol/L (3.5-5.0) 05/29/19 05:21 Chloride 115 mmol/L (101-111) H 05/29/19 05:21 Carbon Dioxide 18 mmol/L (22-32) L 05/29/19 05:21 Anion Gap 8 mmol/L (2-11) 05/29/19 05:21 BUN 41 mg/dL (6-24) H 05/29/19 05:21 Creatinine 1.06 mg/dL (0.51-0.95) H 05/29/19 05:21 Est GFR ( Amer) 60.2 (>60) 05/29/19 05:21 Est GFR (Non-Af Amer) 49.8 (>60) 05/29/19 05:21 BUN/Creatinine Ratio 38.7 (8-20) H 05/29/19 05:21 Glucose 110 mg/dL (70-100) H 05/29/19 05:21 Lactic Acid 1.4 mmol/L (0.5-2.0) 05/28/19 16:20 Calcium 6.0 mg/dL (8.6-10.3) L* 05/29/19 05:21 Total Bilirubin 0.40 mg/dL (0.2-1.0) 05/28/19 13:47 AST 16 U/L (13-39) 05/28/19 13:47 ALT 10 U/L (7-52) 05/28/19 13:47 Alkaline Phosphatase 106 U/L (34-104) H 05/28/19 13:47 Total Creatine Kinase 19 U/L (10-223) 05/28/19 13:47 Troponin I 0.01 ng/mL (<0.04) 05/28/19 13:47 C-Reactive Protein 116.07 mg/L (<8.01) H 05/28/19 13:47 B-Natriuretic Peptide 220 pg/mL (<=100) H 05/28/19 13:47 Total Protein 5.2 g/dL (6.4-8.9) L 05/28/19 13:47 Albumin 1.7 g/dL (3.2-5.2) L 05/28/19 13:47 Globulin 3.5 g/dL (2-4) 05/28/19 13:47 Albumin/Globulin Ratio 0.5 (1-3) L 05/28/19 13:47 Urine Color Jessica 05/29/19 03:48 Urine Appearance Cloudy 05/29/19 03:48 Urine pH 5.0 (5-9) 05/29/19 03:48 Ur Specific [place] 1.024 (1.010-1.030) 05/29/19 03:48 Urine Protein Negative (Negative) 05/29/19 03:48 Urine Ketones Negative (Negative) 05/29/19 03:48 Urine Blood 2+ (Negative) A 05/29/19 03:48 Urine Nitrate Positive (Negative) A 05/29/19 03:48 Urine Bilirubin Negative (Negative) 05/29/19 03:48 Urine Urobilinogen Negative (Negative) 05/29/19 03:48 Ur Leukocyte Esterase 1+ (Negative) A 05/29/19 03:48 Urine WBC (Auto) 3+(>20/hpf) (Absent) A 05/29/19 03:48 Urine RBC (Auto) 2+(6-10/hpf) (Absent) A 05/29/19 03:48 Urine Bacteria 1+ (Absent) A 05/29/19 03:48 Hyaline Casts Present (Absent) A 05/29/19 03:48 Urine Glucose Negative (Negative) 05/29/19 03:48 - Objective Active Medications: Acetaminophen (Tylenol Tab*) 650 mg PO Q4H PRN PRN Reason: FEVER/PAIN Albuterol (Ventolin 2.5 Mg/3 Ml Neb.Yolanda*) 2.5 mg INH RT.[id number] AWAKE PRN PRN Reason: sob/wheezing Apixaban (Eliquis*) 5 mg PO BID [facility] Last Admin: 05/29/19 09:50 Dose: 5 mg Piperacillin Sod/Tazobactam (Sod 3.375 gm/ Sodium Chloride) 100 mls @ 25 mls/ hr IVPB Q8H [facility] Last Admin: 05/29/19 11:01 Dose: 25 mls/hr Sodium Chloride (Ns 0.9% 1000 Ml) 1,000 mls @ 100 mls/hr IV PER RATE [facility] Levothyroxine Sodium (Synthroid Tab*) 150 mcg PO DAILY@0600 [facility] Last Admin: 05/29/19 06:15 Dose: 150 mcg Oxycodone HCl (Roxycodone Tab*) 5 mg PO Q6H PRN PRN Reason: PAIN Last Admin: 05/29/19 06:15 Dose: 5 mg Pharmacy Consult (Zosyn Per Pharmacy*) 1 note FOLLOW UP .ZOSYN PER PHARMACY [facility] Vital Signs: Vital Signs: Temp Pulse Resp BP Pulse Ox 97.2 F 71 15 93/68 97 07/01/19 10:00 05/29/19 10:00 05/29/19 10:00 05/29/19 10:00 05/29/19 10:00 Patient Weight: Weight 51.256 kg Intake and Output: Intake & Output 05/27/19 05/28/19 05/29/19 05/30/19 06:59 06:59 06:59 06:59 Intake Total 4149 Output Total 347 85 Balance 3802 -85 Weight 51.256 kg Intake: IV Fluids 3603 NS (0.9%) 1153 IVPB 143 ABX - PIPERACILLIN 143 Medicated IV 403 CC - Norepinephrine/ 403 Levophed Output: Ibarra 347 85 ADLs: Meal Record Start: 05/28/19 19: 24 Freq: 09,13,18 Status: Complete Protocol: Created 05/28/19 19:24 System (Rec: 05/28/19 19:24 System [id number]) Intake and Output Start: 05/28/19 13: 28 Freq: Status: Active Protocol: Created 05/28/19 13:28 System (Rec: 05/28/19 13:28 System [id number]) Intake and Output Start: 05/28/19 19: 24 Freq: Q1HR Status: Complete Protocol: Created 05/28/19 19:24 System (Rec: 05/28/19 19:24 System [id number]) Document 05/29/19 04:00 [id number] (Rec: 05/29/19 04:04 [id number] [id number]) Document 05/29/19 05:00 [id number] (Rec: 05/29/19 05:11 [id number] ICU-C12) Document 05/29/19 06:00 [id number] (Rec: 05/29/19 06:19 [id number] ICU-C12) Document 05/29/19 08:00 [id number] (Rec: 05/29/19 10:11 [id number] ICU-C07) Document 05/29/19 09:00 [id number] (Rec: 05/29/19 10:57 [id number] ICU-C07) Document 05/29/19 10:00 [id number] (Rec: 05/29/19 10:58 [id number] [id number]) Cardiovascular: NL Sounds; No Murmurs; No JVD Respiratory: Symmetrical Chest Expansion and Respiratory Effort, Clear to Auscultation - decreased breath sounds right side Extremities: No Edema Neurological: Alert and Oriented x 3 - Assessment Assessment: 79 yo female with recurrent L buccal squamous cell cancer now with sepsis secondary to bilateral pneumonia and acute kidney injury - Plan Consult Plan (MU): Palliative Plan: Long discussion with pt. She is aware she has cancer but not sure about prognosis she was to have a follow up appointment with her oncologist after last radiation treatment to discuss how things were going. We discussed the MOLST form and pt wishes to be a full code for now but states she would not want CPR if she knew she had a short term poor prognosis. The plan is for her to go to SNF for subacute rehab. I gave her a list of nursing homes in the [facility]. Pt is eligible for hospice depending on her prognosis and poor nutritional status KPS 40%, PPS 50% - Time On Unit Date of Evaluation: 05/29/19 Hospice Consult Time in: 11:45 Hospice Consult Time Out: 13:15 Hospice Consult Time Total: 90 > 50% of Time Spend In Counseling or Coordinating Care: Yes
[2019-05-29] MEDS ORDERED: NS 0.9% 1000 ML** 1,000 ML IV ONE (15:00)
[2019-05-29] MEDS: NS 0.9% 1000 ML** 1,000 ML IV SCH (19:00)
--- NOTE | 2019-05-30 01:00 | PN ---
Sepsis Event Evaluation Date of Evaluation: 05/28/19 Time of Evaluation: 18:30 Current Stage of Sepsis: Severe Sepsis Vital Signs - Last 12 Hours: Vital Signs - 12 hr Temp Pulse Resp BP Pulse Ox 05/29/19 23:38 97.5 F 65 16 99/39 80 05/29/19 22:29 97.6 F 58 16 120/89 100 05/29/19 20:00 61 13 111/42 99 05/29/19 19:00 97.2 F 66 14 98/42 85 05/29/19 18:00 66.4 F 65 11 96/42 96 05/29/19 17:15 71 21 113/49 92 05/29/19 17:00 72 16 105/53 94 05/29/19 16:45 62 15 94/69 95 05/29/19 16:30 60 17 98/57 97 05/29/19 16:15 64 12 101/43 93 05/29/19 16:00 61 11 96/47 90 05/29/19 15:45 96.3 F 14 95/48 05/29/19 15:31 97.0 F 64 14 90/44 83 05/29/19 15:00 61 11 93/41 92 05/29/19 14:45 58 10 93/38 89 05/29/19 14:31 59 13 87/34 92 05/29/19 14:17 61 17 93 05/29/19 14:01 61 13 75/33 91 05/29/19 14:00 60 16 93 05/29/19 13:45 60 12 90/46 93 05/29/19 13:31 60 12 84/33 94 05/29/19 13:01 66 19 86/32 88 05/29/19 13:00 62 14 87 Lactic Acid: 05/28/19 05/28/19 13:47 16:20 Lactic Acid 2.1 H* 1.4 - Cardiopulmonary Exam Capillary Refill: < or = to 5 seconds Respiratory: Symmetrical Chest Expansion and Respiratory Effort, - - diminished bilat Cardiovascular: NL Sounds; No Murmurs; No JVD, RRR, No Edema - Peripheral Pulse Exam Radial Pulses: Bilateral Normal Pedal Pulses: Bilateral Normal - Skin Exam Skin Exam: Normal Turgor, [place] - Gretchen Coma Scale Best Eye Response: 4 - Spontaneous Best Motor Response: 6 - Obeys Commands Best Verbal Response: 5 - Oriented Coma Scale Total: 15 Assess/Plan/Problems-Billing Assessment: - Patient Problems (1) Severe sepsis Current Visit: Yes Status: Acute Code(s): A41.9 - SEPSIS, UNSPECIFIED ORGANISM; R65.20 - SEVERE SEPSIS WITHOUT SEPTIC SHOCK SNOMED Code(s): 52316849
[2019-05-30] MEDS: ZOSYN 3.375 GM Q8H per EXTENDED INFUSION IVPB SCH ×6 (03:03→18:05)
[2019-05-30] MEDS: NS 0.9% 1000 ML/HR X 1 BAG (TOTAL 1000 ML) IV ONE ×2 (03:27→04:08)
[2019-05-30] MEDS: NS 0.9% 1000 ML** 1,000 ML IV SCH (05:17)
[2019-05-30] MEDS: Levothyroxine TAB* 150 MCG TAB PO SCH (05:20)
[2019-05-30] MEDS: Apixaban* 5 MG TAB PO SCH ×2 (08:44→20:14)
[2019-05-30] MEDS ORDERED: NS 0.9% 250 ML* 250 ML IVPB ONE (10:00)
[2019-05-30] MEDS ORDERED: Calcium Gluconate INJ* 2 GM in NS 0.9% 100 ML* 100 ML IV ONE (11:56)
[2019-05-30] MEDS ORDERED: NS 0.9% 500 ML* 500 ML IV ONE (13:00)
--- NOTE | 2019-05-30 13:11 | PN ---
Date of Service: 05/30/19 Critical Care Services: patient seen and examined in the ICU. Patient transferred to ICU for hypotension. In the ICU, AF. SBP's 130/60s, HR 80, RR 16. NAD. AO times 3. Conversational though difficult to understand. Labs from today pending. Vital Signs: Temp Pulse Resp BP SpO2 FiO2 98.9 F 80 23 130/60 92 100 05/30/19 12:46 05/30/19 12:46 05/30/19 12:46 05/30/19 12:46 05/30/19 12:46 05/29 08:00 Physical Exam: Gen: NAD HEENT: left cheek lesion without drainage. open. non-healed. slightly erythematous Lungs: CTA B/L Cardiac: RRR Abdomen: +BS, Soft, NTP Extremities: No ISAIAH Neuro: no focal deficits Fluid Balance (Past 24 Hours): I= O= Net Intake & Output 05/28/19 05/29/19 05/30/19 05/31/19 06:59 06:59 06:59 06:59 Intake Total 4149 4726 Output Total 347 680 Balance 3802 4046 Weight 113 lb Intake: IV Fluids 3603 4618 ABX - PIPERACILLIN 55 NS (0.9%) 1153 4563 IVPB 143 108 ABX - PIPERACILLIN 143 108 Medicated IV 403 CC - Norepinephrine/ 403 Levophed Output: Urine 200 Ibarra 347 480 Impression: sepsis cheek cancer (unclear pathology) s/p surgery, XRT and chemotherapy severe malnutrition hypocalcemia resolving kaci dehydration Plan: continue IVF's continue empiric ABX. ID consult pending [place] [facility] and hospital records pending patient does not need vasopressors Critical Care Time: 56
--- NOTE | 2019-05-30 13:40 | PN ---
Subjective Date of Service: 05/30/19 Interval History: Pt was seen at 11:30 AM, no new complaints, still coughing, still requiring 02. ABP's had been in 80's despite nearly 5000 ml of IVF boluses in the past 24H. Pt 's feet are cyanotic and unable to palpate pulses. will transfer to ICU. Will transfer back to ICU When pt was asked about her cyanotic toes, she stated that they hurt now less than before admission Objective Active Medications: Acetaminophen (Tylenol Tab*) 650 mg PO Q4H PRN PRN Reason: FEVER/PAIN Last Admin: 05/30/19 13:10 Dose: 650 mg Albuterol (Ventolin 2.5 Mg/3 Ml Neb.Yolanda*) 2.5 mg INH [id number] AWAKE PRN PRN Reason: sob/wheezing Apixaban (Eliquis*) 5 mg PO BID [facility] Last Admin: 05/30/19 08:44 Dose: 5 mg Piperacillin Sod/Tazobactam (Sod 3.375 gm/ Sodium Chloride) 100 mls @ 25 mls/ hr IVPB Q8H [facility] Last Admin: 05/30/19 11:02 Dose: 25 mls/hr Sodium Chloride (Ns 0.9% 1000 Ml) 1,000 mls @ 100 mls/hr IV PER RATE [facility] Last Admin: 05/30/19 05:17 Dose: 100 mls/hr Calcium Gluconate 2 gm/ Sodium (Chloride) 120 mls @ 60 mls/hr IV ONCE ONE Stop: 05/30/19 13:55 Sodium Chloride (Ns 0.9% 500 Ml*) 500 mls @ 500 mls/hr IV ONCE ONE Stop: 05/30/19 13:59 Last Admin: 05/30/19 12:52 Dose: 500 mls/hr Levothyroxine Sodium (Synthroid Tab*) 150 mcg PO DAILY@0600 [facility] Last Admin: 05/30/19 05:20 Dose: 150 mcg Oxycodone HCl (Roxycodone Tab*) 5 mg PO Q6H PRN PRN Reason: PAIN Last Admin: 05/29/19 17:09 Dose: 5 mg Pharmacy Consult (Zosyn Per Pharmacy*) 1 note FOLLOW UP .ZOSYN PER PHARMACY [facility] Vital Signs - 8 hr 05/30/19 05/30/19 05/30/19 07:39 07:45 08:00 Temperature 98.5 F Pulse Rate 69 Respiratory 20 20 Rate Blood Pressure 89/35 88/38 (mmHg) O2 Sat by Pulse Oximetry 05/30/19 05/30/19 11:13 12:46 Temperature 97.7 F 98.9 F Pulse Rate 67 80 Respiratory 20 23 Rate Blood Pressure 94/35 130/60 (mmHg) O2 Sat by Pulse 92 Oximetry Oxygen Devices in Use Now: Nasal Cannula Appearance: 79 yo F in nAD, AAOx3 Eyes: No Scleral Icterus, PERRLA Ears/Nose/Mouth/Throat: NL Teeth, Lips, Gums, Mucous Membranes Moist, - - left cheek with a tissue defect/wound what goes all the way though to oral cavity with jaw bone exposed Neck: NL Appearance and Movements; NL JVP Respiratory: Symmetrical Chest Expansion and Respiratory Effort, - - coarse rhonchi in JACOB Cardiovascular: NL Sounds; No Murmurs; No JVD, RRR Abdominal: NL Sounds; No Tenderness; No Distention, No Hepatosplenomegaly Lymphatic: No Cervical Adenopathy Extremities: - - b/l pitting pedal edema L>>R, b/l toes cyanotic L>R, left leg warmer than R Skin: - - large left cheek wound Neurological: Alert and Oriented x 3, NL Muscle Strength and Tone Result Diagrams: 05/29/19 05:21 05/29/19 05:21 Microbiology and Other Data: Microbiology 05/29/19 03:48 Urine Culture - Preliminary Urine Escherichia Coli 05/28/19 13:46 Skin and Soft Tissue MRSA/MSSA (PCR - Final Neck Mrsa Negative S.aureus Negative Gram Stain - Final Wound Culture - Preliminary Staphylococcus Schleiferi Enterobacter Gergoviae Stenotrophomas Maltophilia Streptococcus Gordonii 05/28/19 16:20 Aerobic Blood Culture - Preliminary Blood Venous No Growth Day 1 Anaerobic Blood Culture - Preliminary No Growth Day 1 05/28/19 13:46 Aerobic Blood Culture - Preliminary Blood Venous No Growth Day 1 Anaerobic Blood Culture - Preliminary No Growth Day 1 05/29/19 08:05 Skin and Soft Tissue MRSA/MSSA (PCR - Final Misc Source (See Comment) - Left Cheek Mrsa Negative S.aureus Negative Gram Stain - Final 05/29/19 03:48 Legionella Urinary Antigen - Final Urine Negative Legionella Antigen Streptococcus pneumoniae Ag Screen - Final Negative S. 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 09/28/18 pt undwerwent excision of left neck masswith path + invasive squamus cell ca. In 09/2019 she had further resection in [place] and then radiation. Sometime during that time she developed left orocutaneus fistula and has had persisient wt loss and problems with swallowing wound care conssult requested for wound on cheek will ask Dr. Perry to assist with st (2) Severe sepsis Comment: due to aspiration PNA, cont Zosyn due to hypotension pt chevy be transferred back to ICU will obtain cortisol level, LA, cont IVF (3) Hypotension Comment: due to severe sepsis with septic shock, but will check cortisol to r/o adrenal insufficiency Pt;a albumin is also 1.7 and the low oncotic pressures may facilitate third spacing and low BP despite adequate IVF resuscitation (4) Malnutrition Comment: pt's albumin is low, prealbumin is pending Pt has significant muscle wasting on exam and lost 80 lbs since 11/2018 malnutrition is acute and severe Nutrition consult pending (5) Dysphagia Comment: due to oral cancer and post op scarring Swallow eval deemed pt OK for full liquid diet Pt stated that "they tried a PEG at [place] and were unable to get it before her oral surgery" (6) Peripheral arterial disease Comment: VARGHESE grossly abnormal , especially on left will get CT aorta with runoff the cyansosis is chronic as per pt (7) H/O deep venous thrombosis Comment: cont Eliquis dx made on 05/23/19 (8) Asymptomatic bacteriuria Comment: U. cx positive For E. coli, pt is asymptomatic (9) DVT prophylaxis Comment: eliquis Status and Disposition: inpatient
[2019-05-30] MEDS: oxyCODONE TAB* 5 MG TAB PO PRN (13:46)
[2019-05-30] MEDS ORDERED: Iodixanol* (CONTRAST) 320 MG/ML 100 ML SDV IV ONE (15:26)
[2019-05-30 16:50] LABS: Prealbumin < 3 mg/dL (18-38)
[2019-05-30 16:51] LABS: Albumin 1.5 g/dL (3.2-5.2); Albumin/Globulin Ratio 0.5 (1-3); BUN/Creatinine Ratio 36.4 (8-20); Calcium 6.7 mg/dL (8.6-10.3); EGFR African American 74.6 (>60); EGFR Non-African American 61.7 (>60); Globulin 3.1 g/dL (2-4); Potassium 3.2 mmol/L (3.5-5.0); Total Bilirubin 0.4 mg/dL (0.2-1.0); Total Protein 4.6 g/dL (6.4-8.9)
[2019-05-30 17:13] LABS: TSH (Thyroid Stimulating Horm) 14.14 mcIU/mL (0.34-5.60)
--- NOTE | 2019-05-30 17:49 | CONSULT ---
Subjective Date of Service: 05/30/19 Interval History: Ms. 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 She was found to be hypotensive. She was admitted to the hospital with severe sepsis and concern for pneumonia. Presented to the hospital with a known wounds to the side of the face and neck. Patient seen and examined at bedside. Family History: Unchanged from Admission Social History: Unchanged from Admission Past Medical History: Unchanged from Admission Review of Systems - Measurements Intake and Output: Intake and Output Last 24 Hours 05/28/19 05/29/19 05/30/19 05/31/19 06:59 06:59 06:59 06:59 Intake Total 4149 4726 680 Output Total 347 680 400 Balance 3802 4046 280 Weight 113 lb 113 lb Intake: IV Fluids 3603 4618 ABX - PIPERACILLIN 55 NS (0.9%) 1153 4563 IVPB 143 108 680 ABX - PIPERACILLIN 143 108 Calcium Glucanate 117 NS (0.9%) 563 Medicated IV 403 CC - Norepinephrine/ 403 Levophed Output: Urine 200 Ibarra 347 480 400 - Review of Systems Constitutional Symptoms: Negative: Fever, Other - Chills Dermatology: Positive: Other - Wounds to the left side of face and neck Objective Active Medications: Acetaminophen (Tylenol Tab*) 650 mg PO Q4H PRN Reason: FEVER/PAIN Albuterol (Ventolin 2.5 Mg/3 Ml Neb.Yolanda*) 2.5 mg INH [id number] AWAKE PRN Reason: sob/wheezing Apixaban (Eliquis*) 5 mg PO BID [facility] Citric Acid/Sodium Citrate (Bicitra*) 15 ml PO TID [facility] Piperacillin Sod/Tazobactam (Sod 3.375 gm/ Sodium Chloride) 100 mls @ 25 mls/ hr IVPB Q8H [facility] Lactated Ringer's (Lactated Ringers 1000 Ml Bag*) 1,000 mls @ 50 mls/hr IV PER RATE [facility] Levothyroxine Sodium (Synthroid Tab*) 150 mcg PO DAILY@0600 [facility] Morphine Sulfate (Morphine Inj (Syringe))*) 1 mg IV Q4H PRN Reason: PAIN Oxycodone HCl (Roxycodone Tab*) 5 mg PO Q6H PRN Reason: PAIN Pharmacy Consult (Zosyn Per Pharmacy*) 1 note FOLLOW UP .ZOSYN PER PHARMACY [facility] Vital Signs 05/30/19 05/30/19 05/30/19 15:00 15:01 15:15 Temperature 97.0 F 97.0 F 97.0 F Pulse Rate 94 94 78 Respiratory 20 21 22 Rate Blood Pressure 145/57 109/59 (mmHg) O2 Sat by Pulse 94 92 96 Oximetry Oxygen Devices in Use Now: OxyMask Appearance: NAD, sitting up in bed Ears/Nose/Mouth/Throat: Mucous Membranes Moist Respiratory: Symmetrical Chest Expansion and Respiratory Effort Neurological: Alert and Oriented x 3 Result Diagrams: 05/31/19 05:58 05/31/19 05:58 Additional Lab and Data: Above labs were pulled into the chart when note was edited prior to signing, see labs from day of consult below Laboratory Tests 05/29/19 05/30/19 05/30/19 05:21 15:27 15:53 WBC 19.9 H Hgb 10.7 L Hct 32 L Plt Count 333 Sodium 145 Potassium 3.2 L Chloride 121 H Carbon Dioxide 11 L* BUN 32 H Creatinine 0.88 Glucose 84 Total Protein 4.6 L Albumin 1.5 L Prealbumin < 3 L Microbiology and Other Data: Microbiology 05/29/19 03:48 Urine Culture - Preliminary Urine Escherichia Coli 05/28/19 13:46 Skin and Soft Tissue MRSA/MSSA (PCR - Final Neck Mrsa Negative S.aureus Negative Gram Stain - Final Wound Culture - Preliminary Staphylococcus Schleiferi Enterobacter Gergoviae Stenotrophomas Maltophilia Streptococcus Gordonii 05/28/19 16:20 Aerobic Blood Culture - Preliminary Blood Venous No Growth Day 1 Anaerobic Blood Culture - Preliminary No Growth Day 1 05/28/19 13:46 Aerobic Blood Culture - Preliminary Blood Venous No Growth Day 1 Anaerobic Blood Culture - Preliminary No Growth Day 1 05/29/19 08:05 Skin and Soft Tissue MRSA/MSSA (PCR - Final Misc Source (See Comment) - Left Cheek Mrsa Negative S.aureus Negative Gram Stain - Final 05/29/19 03:48 Legionella Urinary Antigen - Final Urine Negative Legionella Antigen Streptococcus pneumoniae Ag Screen - Final Negative S. pneumo Antigen 05/28/19 19:22 Nasal Screen MRSA (PCR) - Final Nasal Mrsa Not Detected Skin Deviation Note - Skin Deviation Findings Left side of face and neck - There is a superficial open area measuring 8 cm x 4 cm x 0.1 cm. There is also what appears to be a healed fistula below the mandible line, this measures 0.5 cm x 0.5 cm x 0.2 cm. There is also a deeper open area that appears to be a mucosal fistula below the the area of exposed mandible, this area measures 2 cm x 2 cm x 1.8 cm. Unable to fully visualize the wound base. There is yellow mucous drainage. Assessment/Plan: Ms. 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 She was found to be hypotensive. She was admitted to the hospital with severe sepsis and concern for pneumonia. Presented to the hospital with a know wounds to the side of the face and neck. 1. Wound to left cheek and neck. Recommend gently cleaning the area daily, apply dry gauze. Change daily and as needed for drainage. 2. Left cheek malignant neoplasm. Found to have invasive squamous cell cancer, 09/2018 she had resection at [facility] and then started radiation. She developed a left orocutaneus fistula and has had persistent weight loss and problems swallowing. Management per Oncology. 3. Severe protein calorie malnutrition. Pre-albumin < 3. Patient with moderate oropharyngeal dysphagia and requires a fully liquified diet (pureed thinned to nectar or honey consistency per speech therapy). 4. Diet. Full liquid diet. 5. Code Status. Full Code. 6. Disposition. Inpatient, disposition per primary medicine team. TIME SPENT: Time for this wound consultation was 25 minutes and 15 minutes was spent with the patient and family discussing past medical history; assessing, measuring, and photographing the wounds. Wound Problem/Plan Is Patient a Wound Clinic Patient: No Attending: Medina Sandoval
[2019-05-30] MEDS ORDERED: Lactated Ringers 1000 ML Bag* 1,000 ML IV SCH (18:00)
--- NOTE | 2019-05-30 18:44 | CONS ---
CONSULTATION REPORT: DATE OF CONSULT: 05/30/19 REQUESTING PHYSICIAN: Dr. Kelly Liriano. CONSULTING SERVICE: Infectious disease. REASON FOR CONSULTATION: Left face cellulitis. IMPRESSION: 1. Left face cellulitis and open wound at the site of a failed flap procedure after resection of a squamous cell carcinoma of the oral cavity in the setting of radiation and prior chemotherapy. She has got some polymicrobial cultures including Staph. schleiferi, Enterobacter gergoviae, and Stenotrophomonas maltophilia, Streptococcus gordonii, and She lusitaniae. Staph is probably the prominent pathogen which has shown up on 2 different specimens. 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 2. Dyspnea and cough. A CT shows right middle lobe and left lower lobe infiltrate as well as the right upper lobe. This may be infectious, may be aspiration related in the setting of her upper airway process. 3. Hypothyroidism. RECOMMENDATIONS: We will continue [place] and follow her exam here. I think she will be best served with her primary surgical service in [place] for definitive treatment. HISTORY OF PRESENT ILLNESS: This is an 79-year-old woman who had had a resection of an oral cavity squamous cell carcinoma. It recurred. She had developed a left orocutaneous fistula and then on 01/18/19, had a flap and closure of the fistula, which she apparently tolerated well. She had been treated with chemotherapy in the form of pembrolizumab in February and March. She had radiation therapy done here with Dr. Aragon. She is admitted now with dyspnea, weakness, unable to take in nutrition, and was found to be hypotensive. She was started on antibiotics, supplemental oxygen, fluid hydration. Her white count initially was 12 and this morning was 20. She is not having diarrhea. Her CRP on admission was 116. The wound cultures from the open area on her left face are as above. A urine culture grew E. coli. The urinalysis showed nitrites and leukocyte esterase. PAST MEDICAL HISTORY: 1. Squamous cell carcinoma of the left oral cavity, which was resected and then she had developed an orocutaneous fistula, which was treated with flap surgery, which failed. She had radiation. She had chemotherapy. 2. Hypothyroidism. 3. Diverticulosis. 4. Lung nodule. 5. History of breast cancer, treated with radiation. 6. Status post tonsillectomy. 7. Status post hysterectomy. 8. Status post appendectomy. 9. Status post hernia repair. 10. Status post bowel resection. 11. Status post left breast lumpectomy. ALLERGIES: No known drug allergies. MEDICATIONS: 1. Tylenol. 2. Albuterol. 3. Apixaban. 4. Levothyroxine. 5. Oxycodone. 6. Zosyn 3.375 g every 8 hours. FAMILY HISTORY: Father with heart failure. Mother had diabetes. A brother is from leukemia. SOCIAL HISTORY: She is living by herself in [place]. She has no sick contacts. REVIEW OF SYSTEMS: All negative, except as noted above to a 12-point review. PHYSICAL EXAM: Vital Signs: Temperature is 36, heart rate 82, respiratory rate 20, blood pressure 124/61, oxygen saturation is 96% on 5 L by face mask. In general, she is awake, not in distress. She appears cachectic. HEENT: There is no conjunctival hemorrhage. Oropharynx shows she was edentulous. There was no thrush. Neck: There is induration of the left neck with mild erythema up over the angle of the jaw with some tenderness. No crepitus or fluctuance. There is an open area above the left mandible. Heart is regular rate and rhythm without murmurs, rubs, or gallops. Lungs are clear to auscultation bilaterally. Abdomen: Soft, nontender, nondistended. There are bowel sounds present. Skin: There is no rash or splinter hemorrhage. DIAGNOSTIC STUDIES/LAB DATA: Laboratory Data: White blood cell count 20, hemoglobin 10, platelets 333. Creatinine is 1. Please see impressions and recommendations outlined above, which I have discussed with Dr. Liriano. Thank you for asking me to see Ms. Stanford in consultation. [id number]/CPS #: [id number] [facility]ITALDuane
[2019-05-30] MEDS: Sodium Citrate/Citric Acid* 15 ML UDC PO SCH (20:14)
[2019-05-30] MEDS ORDERED: Potassium Chlor TAB* 20 MEQ TAB.ER PO ONE ×2 (20:34→22:45)
[2019-05-31] MEDS: Morphine INJ* 2 MG/ML 1 ML SYRINGE (TWO MG - NEW SYRINGE VERSION) IV PRN ×2 (01:59→09:11)
[2019-05-31] MEDS ORDERED: Ondansetron INJ* 2 MG/ML VIAL ONE (02:20)
[2019-05-31] MEDS: Ondansetron INJ* 2 MG/ML VIAL IV PRN ×2 (02:22→09:15)
[2019-05-31] MEDS: ZOSYN 3.375 GM Q8H per EXTENDED INFUSION IVPB SCH ×4 (02:53→12:40)
[2019-05-31 06:10] LABS: ABS Lymphocytes 0.6 10^3/ul (1.0-4.8); ABS Monocytes 0.2 10^3/ul (0-0.8); ABS Neutrophils 13.3 10^3/ul (1.5-7.7); Hematocrit 34 % (35-47); Hemoglobin 10.9 g/dL (12.0-16.0); Lymphocyte % 4.5 %; Mean Corpuscular HGB Conc 32 g/dL (31-36); Mean Corpuscular Hemoglobin 27 pg (27-31); Mean Corpuscular Volume 87 fL (80-97); Platelet Count 318 10^3/uL (150-450); Red Blood Count 3.98 10^6 /uL (3.70-4.87); Red Cell Distribution Width 21 % (10-15); White Blood Count 14.2 10^3/uL (3.5-10.8)
[2019-05-31 06:27] LABS: Albumin 1.5 g/dL (3.2-5.2); Albumin/Globulin Ratio 0.4 (1-3); Calcium 6.9 mg/dL (8.6-10.3); EGFR African American 62.2 (>60); EGFR Non-African American 51.4 (>60); Globulin 3.4 g/dL (2-4); Magnesium 1.5 mg/dL (1.9-2.7); Potassium 4.1 mmol/L (3.5-5.0); Total Bilirubin 0.4 mg/dL (0.2-1.0); Total Protein 4.9 g/dL (6.4-8.9)
[2019-05-31] MEDS ORDERED: Furosemide IV* 10 MG/ML VIAL (40 MG) IV ONE (06:31)
[2019-05-31] MEDS ORDERED: Bumetanide IV* 0.25 MG/ML 4 ML VIAL SLOW PUSH ONE (08:03)
[2019-05-31] MEDS ORDERED: Levothyroxine INJ* 100 MCG/5 ML VIAL IV SCH (08:05)
[2019-05-31] MEDS ORDERED: Sodium Bicarbonate 8.4%* 50 ML SYRINGE ONE (08:36)
[2019-05-31] MEDS ORDERED: SODIUM BICARBONATE IV ONE (08:49)
[2019-05-31] MEDS ORDERED: NS 0.45% IV ONE (08:49)
[2019-05-31] MEDS ORDERED: Morphine 4 MG/ML VIAL (1 ml) 4 MG/ML VIAL ONE ×2 (09:35→11:14)
[2019-05-31] MEDS: Levothyroxine TAB* 150 MCG TAB PO SCH (09:47)
[2019-05-31] MEDS: Apixaban* 5 MG TAB PO SCH (09:48)
[2019-05-31] MEDS: Sodium Citrate/Citric Acid* 15 ML UDC PO SCH (09:48)
[2019-05-31] MEDS ORDERED: Magnesium Sulfate 2 GM IV* 2 GM/50 ML BAG IVPB ONE (09:52)
[2019-05-31] MEDS ORDERED: Lactated Ringers 1000 ML Bag* 1,000 ML IV SCH (10:00)
[2019-05-31] MEDS ORDERED: Calcium Gluconate INJ* 1 GM in NS 0.9% 50 ML* 50 ML IVPB ONE (10:30)
[2019-05-31] MEDS ORDERED: Lorazepam PYXIS KEY PRN (11:14)
[2019-05-31] MEDS ORDERED: LORazepam INJ* 2 MG/ML 1 ML VIAL IV PUSH PRN (11:14)
--- NOTE | 2019-05-31 12:04 | PN ---
Subjective Date of Service: 05/31/19 Interval History: Called to bedside bu RN and respiratory this morning for respiratory distress, tachypnea, tachycardia and sats in the 80's. Trialed vapotherm with no change. ABG with metabolic acidosis. Poor urine output and mottled lower extremities with anasarca noted. 1 amb bicarb, lasix and bumex ordered with no change. Started on bipap, niece at bedside and updated on change in status. Patient was initially responding but now increasingly lethargic. Family History: Unchanged from Admission Social History: Unchanged from Admission Past Medical History: Unchanged from Admission Objective Active Medications: Acetaminophen (Tylenol Tab*) 650 mg PO Q4H PRN PRN Reason: FEVER/PAIN Last Admin: 05/30/19 13:10 Dose: 650 mg Albuterol (Ventolin 2.5 Mg/3 Ml Neb.Yolanda*) 2.5 mg INH RT.[id number] AWAKE PRN PRN Reason: sob/wheezing Piperacillin Sod/Tazobactam (Sod 3.375 gm/ Sodium Chloride) 100 mls @ 25 mls/ hr IVPB Q8H [facility] Last Admin: 05/31/19 02:53 Dose: 25 mls/hr Levothyroxine Sodium (Synthroid Inj*) 75 mcg IV 0600 [facility] Last Admin: 05/31/19 09:25 Dose: 75 mcg Lorazepam (Ativan Inj*) 1 mg IV PUSH Q1H PRN PRN Reason: AGITATION Last Admin: 05/31/19 11:36 Dose: 1 mg Miscellaneous (Ativan Pyxis Beyer) 1 ea N/A .ATIVAN IV BEYER PRN PRN Reason: PYXIS BEYER Morphine Sulfate (Morphine 4 Mg/Ml Vial (1 Ml)) 4 mg IV Q1H PRN PRN Reason: PAIN Ondansetron HCl (Zofran Inj*) 4 mg IV Q6H PRN PRN Reason: NAUSEA Last Admin: 05/31/19 09:15 Dose: 4 mg Pharmacy Consult (Zosyn Per Pharmacy*) 1 note FOLLOW UP .ZOSYN PER PHARMACY [facility] Vital Signs - 8 hr 05/31/19 05/31/19 05/31/19 04:00 05:00 06:00 Temperature 97.9 F 97.9 F 98.1 F Pulse Rate 89 98 104 Respiratory 22 30 23 Rate Blood Pressure 93/78 152/113 (mmHg) O2 Sat by Pulse 93 91 95 Oximetry 05/31/19 05/31/19 05/31/19 07:00 07:01 07:03 Temperature 97.9 F 97.9 F 97.9 F Pulse Rate 108 111 115 Respiratory 24 21 24 Rate Blood Pressure 59/38 110/97 (mmHg) O2 Sat by Pulse 100 100 Oximetry 05/31/19 05/31/19 05/31/19 08:00 08:03 08:31 Temperature 97.7 F 97.7 F 97.5 F Pulse Rate Respiratory 26 23 17 Rate Blood Pressure 121/79 (mmHg) O2 Sat by Pulse Oximetry 05/31/19 05/31/19 05/31/19 09:00 09:11 09:31 Temperature 97.3 F 97.3 F Pulse Rate Respiratory 20 22 20 Rate Blood Pressure (mmHg) O2 Sat by Pulse Oximetry 05/31/19 05/31/19 05/31/19 09:42 09:44 10:00 Temperature 97.3 F 97.3 F Pulse Rate Respiratory 24 22 22 Rate Blood Pressure 108/68 (mmHg) O2 Sat by Pulse Oximetry 05/31/19 05/31/19 05/31/19 11:00 11:15 11:36 Temperature Pulse Rate Respiratory 22 25 25 Rate Blood Pressure (mmHg) O2 Sat by Pulse Oximetry 05/31/19 11:37 Temperature Pulse Rate Respiratory 25 Rate Blood Pressure (mmHg) O2 Sat by Pulse Oximetry Oxygen Devices in Use Now: BiPAP, IPAP, EPAP Appearance: lethargic, ill-appearing Respiratory: - - course, bilateral rales 2/3 up from the bases Cardiovascular: - - tachycardia, anasarca Extremities: - - cool, mottled lower extremities Neurological: - - lethargic with decreasing LOC Lines/Tubes/Other Access: Clean, Dry and Intact Finch, Clean, Dry and Intact Other Access - chest port Result Diagrams: 05/31/19 05:58 05/31/19 05:58 Additional Lab and Data: Laboratory Tests 05/29/19 05/30/19 05/30/19 05:21 15:27 15:53 WBC 19.9 H Hgb 10.7 L Hct 32 L Plt Count 333 Sodium 145 Potassium 3.2 L Chloride 121 H Carbon Dioxide 11 L* BUN 32 H Creatinine 0.88 Glucose 84 Total Protein 4.6 L Albumin 1.5 L Prealbumin < 3 L Microbiology and Other Data: Microbiology 05/29/19 03:48 Urine Culture - Preliminary Urine Escherichia Coli 05/28/19 13:46 Skin and Soft Tissue MRSA/MSSA (PCR - Final Neck Mrsa Negative S.aureus Negative Gram Stain - Final Wound Culture - Preliminary Staphylococcus Schleiferi Enterobacter Gergoviae Stenotrophomas Maltophilia Streptococcus Gordonii 05/28/19 16:20 Aerobic Blood Culture - Preliminary Blood Venous No Growth Day 1 Anaerobic Blood Culture - Preliminary No Growth Day 1 05/28/19 13:46 Aerobic Blood Culture - Preliminary Blood Venous No Growth Day 1 Anaerobic Blood Culture - Preliminary No Growth Day 1 05/29/19 08:05 Skin and Soft Tissue MRSA/MSSA (PCR - Final Misc Source (See Comment) - Left Cheek Mrsa Negative S.aureus Negative Gram Stain - Final 05/29/19 03:48 Legionella Urinary Antigen - Final Urine Negative Legionella Antigen Streptococcus pneumoniae Ag Screen - Final Negative S. pneumo Antigen 05/28/19 19:22 Nasal Screen MRSA (PCR) - Final Nasal Mrsa Not Detected Diagnostic Imaging: Patient Name: ARTEMIO VILLANUEVA Medical Record#: [id number] Ordering Physician: Kelly Liriano MD Acct.#: [id number] : 1940 Age: 79 Sex: F Location[facility] Exam Date: 05/30/191509 ADM Status: ADM IN Order Information: CTA ABD AORTA & RUNOFF Accession Number: [id number] CPT: 18001 EXAM: CT Bilateral Angiogram of the Abdominal Aorta and Bilateral Lower Extremities (Run-off) With IV Contrast EXAM DATE/TIME: 05/30/2019 5:26 PM CLINICAL HISTORY: 79 years old, female; Numbness; Lower extremity; Bilatera; Additional info: R/O abnormal lyndon's TECHNIQUE: Imaging protocol: Bilateral CT angiogram of the abdominal aorta, pelvis and bilateral lower extremities with IV iodinated contrast. Coronal and sagittal reformatted images were created and reviewed. 3D rendering: MIP reconstructed images were created and reviewed. Radiation optimization: All CT scans at this facility use at least one of these dose optimization techniques: automated exposure control; mA and/or kV adjustment per patient size (includes targeted exams where dose is matched to clinical indication); or iterative reconstruction. Contrast material: VISIPAQUE 320; Contrast volume: 100 ml; Contrast route: 4.0 ML/SEC IV INJECTOR: POWERPORT; COMPARISON: CTA CHEST CTA CHEST 05/28/2019 3:44 PM FINDINGS: Limitations: Image quality is degraded by motion artifact. Tubes, catheters and devices: The urinary bladder is partially collapsed around a Finch catheter and contains a a focus of nondependent air. High density material is present in urinary bladder, likely excreted IV contrast. Aorta: Moderate burden of calcific plaque in the abdominal aorta. No aortic aneurysm. Celiac trunk and mesenteric arteries: Atherosclerotic plaque at origins of celiac and superior mesenteric arteries . No occlusion or significant stenosis. Renal arteries: No occlusion or significant stenosis. Right iliac arteries: Moderate calcific plaque in the iliac vessels bilaterally. There is occlusion of a short segment of right common iliac artery on series 3 image 85. Right femoral/popliteal arteries: Severe stenosis versus occlusion in the proximal right common femoral artery series 3 image 135. Right infrapopliteal arteries: Occlusion of right distal peroneal artery. Severe attenuation of distal right anterior tibial artery with poor visualization of dorsalis pedis artery. Left iliac arteries: Moderate calcific plaque. Moderate narrowing of proximal left common iliac artery series 3 image 80. No occlusion. Left femoral/popliteal arteries: Scattered calcific plaque. Vessels are small in caliber. No occlusion. Left infrapopliteal arteries: Scattered calcific plaque. Occlusion of distal left anterior tibial artery. Nonvisualization of left dorsalis pedis. Severe attenuation of left peroneal artery. Lungs: Increasing dependent air space opacities in the right middle lobe, lingula, and left lower lobe. The right lower lobe is mostly collapsed and consolidated. Pleural space: Moderate bilateral pleural effusions are present, increased since prior study. Liver: There is a diffuse decrease in hepatic parenchymal density, consistent with fatty infiltration. No definite intrahepatic biliary dilatation. Gallbladder and bile ducts: Markedly distended gallbladder containing layering high density sludge or tiny stones. Pancreas: The pancreas is atrophic. Spleen: Normal. No splenomegaly. Adrenals: Normal. No mass. Kidneys and ureters: There is a 9 mm calcification in the interpolar region of the right kidney. Indeterminate 2.1 cm right renal hypodensity which could represent hyperdense cyst or small solid lesion. Stomach and bowel: The surgical change in distal colon. No evidence of bowel obstruction. Appendix: No evidence of appendicitis. Bladder: Partially collapsed around Finch catheter. Contains high density material, likely excreted IV contrast. Reproductive: Unremarkable as visualized. Intraperitoneal space: Unremarkable. No free air. No significant fluid collection. Lymph nodes: No lymphadenopathy. Bones/joints: No acute fracture identified. Of note, the bones are diffusely demineralized which limits evaluation of fine bony detail. Soft tissues: There is diffuse induration of subcutaneous fat. IMPRESSION: 1. Aortoiliac atherosclerotic disease with occlusion of a short segment of RIGHT common iliac artery with collateral reconstitution. 2. Severe stenosis versus occlusion of short segment of proximal right common femoral artery. Occlusion of right distal peroneal artery. Severe attenuation of distal right anterior tibial artery with poor visualization of dorsalis pedis artery. 3. Severe stenosis of short segment of LEFT common iliac artery. Occlusion of distal left anterior tibial artery. Nonvisualization of left dorsalis pedis. Severe attenuation of left peroneal artery. 4. Markedly distended gallbladder containing layering sludge or tiny stones. 5. Increased moderate bilateral pleural effusions. 6. Increasing dependent air space opacities in right middle lobe, lingula, and left lower lobe. Developing collapse/consolidation of right lower lobe 7. 9 mm calcification in the interpolar region of the right kidney. Indeterminate 2.1 cm right renal hypodensity which could represent hyperdense cyst or small solid lesion. Recommend comparison with prior studies. 8. Anasarca. Asymmetric soft tissue swelling in the left lower extremity. 9. Other nonemergent findings detailed above. 10. Of note, venous structures are unopacified and cannot be assessed To contact [facility] with a general question: Operations Center - [phone] For direct physician to physician contact: Physician Hotline - [phone] [facility] ([facility] Facility ID #[id number]) <Electronically signed by Iris Young MD in OV> 05/30/192115 Dictated By: Iris Young MD Dictated Date/Time: 05/30/192115 Transcribed Date/Time: This report is only to be considered final once signed by the Provider(s) as displayed in the "<Electronically Signed by >" field (s). Absence of a signature indicates the report is in a draft status and still needs to be finalized. In the event this document was created by someone other than the signing Provider, the individual initiating the document will be listed in the "Entered by:" or "Dictated by:" ladd. 2 of 3 Patient Name: ARTEMIO VILLANUEVA Medical Record#: [id number] Ordering Physician: Bruno Rosales MD Acct.#: [id number] : 1940 Age: 79 Sex: F Location: [facility] Exam Date: 05/31/19609 ADM Status: ADM IN Order Information: CHEST AP OR PORT Accession Number: [id number] CPT: 51588 Indication: Evaluate for CHF. Single frontal view of the chest performed at 0615 hours was reviewed. Comparison is made with previous exam dated May 28, 2019. Cardiomegaly is noted. Interstitial edema consistent with CHF is noted. Central line is in place. Increasing right pleural effusion is noted. Underlying pneumonia is not excluded. IMPRESSION: CARDIOMEGALY WITH INCREASING RIGHT PLEURAL EFFUSION, INCREASING INTERSTITIAL EDEMA AND ALVEOLAR CONSOLIDATION. 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 - Patient Problems (1) Respiratory failure Code(s): J96.90 - RESPIRATORY FAILURE, UNSP, UNSP W HYPOXIA OR HYPERCAPNIA SNOMED Code(s): 709003140 Comment: - 2/2 aspiration PNA, sepsis, head and neck cancer and fluid overload from sepsis fluid resuscitation - ABG with severe metabolic acidosis - Trial of vapotherm, then bipap with no appreciable change, patient continues to have reduced LOC and severe respiratory distress - No response to lasix, bumex and bicarb, scant urine output only on finch - Call placed to HC proxy Namrata regarding wishes, as patient requires intubation as she is not responding to non-invasive support, Namrata and patient's other niece at bedside state they do not want to engage in further invasive measures and decline intubation, they also decline CPR - Patient placed on comfort measures only, morphine provided, she will be taken off bipap - Supportive care provided, exposure machine operator services offered (2) Hypotension Comment: - 2/2 severe sepsis with septic shock/aspiration PNA - continue comfort measures, family does not want pressors (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 - MALIGNANT NEOPLASM OF MOUTH, UNSPECIFIED SNOMED Code(s): 790990471 Comment: - 09/28/18 pt undwerwent excision of left neck masswith path + invasive squamus cell carcinoma - 09/2019 second resection at [facility] and then radiation with 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
[2019-05-31] MEDS: Morphine 4 MG/ML VIAL (1 ml) 4 MG/ML VIAL IV PRN ×2 (12:05→12:50)
[2019-05-31 12:17] VITALS: BP 82/56
[2019-05-31] MEDS ORDERED: Morphine 4 MG/ML VIAL (1 ml) 4 MG/ML VIAL IV PRN (12:45)
[2019-05-31] MEDS ORDERED: Morphine 4 MG/ML VIAL (1 ml) 4 MG/ML VIAL IV ONE (12:45)
--- NOTE | 2019-05-31 19:49 | DS ---
AMENDED REPORT NOW INCLUDES DESIGNATED COSIGNER CC: Dr. Opal Gomez; Dr. Angelo Perry; Dr. Justin Mcpherson; Dr. Becka Chew * DISCHARGE SUMMARY AND EXPIRATION NOTE: DATE OF ADMISSION: 05/28/19 DATE OF DISCHARGE AND EXPIRATION: 05/31/19 PRIMARY CARE PHYSICIAN: Dr. Opal Gomez MY ATTENDING PHYSICIAN FOR TODAY: Dr. Meli Renteria * (dictated by Bassem Vargas NP) HOSPITAL COURSE: Please refer to admitting history and physical on 05/28/19, but in short, Ms. 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 She was currently considering the possibility of a surgical PEG tube being placed because she was becoming severely cachetic and unable to eat and having significant amount of weight loss. Given her dysphagia and persistent aspirations, her pneumonia had progressed and was severe. She was on empiric treatment with antibiotics, however, she progressed to sepsis and received very aggressive fluid management to maintain hemodynamic stability. The patient did become fluid overloaded after fluid resuscitation for her sepsis and then was sent to the ICU for further monitoring. Also during this time, she was noted to have some mottled lower extremities, arterial studies in the form of a CT runoff did note her to have arterial occlusions of the lower extremities. In particular, she has severe stenosis in a short segment of the proximal right common femoral artery, occlusion of the right distal peroneal artery; severe attenuation of the distal right anterior tibial artery with poor visualization of the dorsalis pedis artery; severe stenosis of a short segment of the left common iliac artery; occlusion of the distal left anterior tibial artery. There was nonvisualization of the left dorsalis pedis, severe attenuation of the left peroneal artery. There was a markedly distended gallbladder containing layering sludge and tiny stones. There was increased amount of bilateral pleural effusion, also dependent air space opacities in right middle lobe, lingula, and left lower lobe developing collapse and consolidation of the right lower lobe and 7.9 mm calcification in the interpolar region or the right kidney. Generalized anasarca. Various other findings were also noted on the study. After the patient was sent to the ICU, she had progressive respiratory distress. On the morning of 05/31/19, her O2 saturations began to decrease and her work of breathing increased. She was trialed briefly on Vapotherm. After her ABG was noted to be severely acidotic with a pH was 7.07, she was noted to have a metabolic acidosis. She did not tolerate the Vapotherm and then was upgraded to BiPAP. After some time on BiPAP , her ABG was repeated. She did not have much change in her results and at that point, the patient's mentation changed considerably. She began to get more lethargic and had a considerable amount of mottling to both her upper and lower extremities and progressive loss of urine output throughout the day, with tachycardia and hypotension. We were unable to obtain an O2 saturation percentage, she was non-responsive to diuretics for her fluid overload or BiPAP for her respiratory failure. At that time, I had a conversation with the patient's niece who was at the bedside and then we also reached out to the patient's other niece, Naila who is her healthcare proxy to have a roseanne discussion regarding goals of care. The patient was seen by Dr. Becka Chew of Palliative when the patient was still mentating appropriately and at that time, the patient had initially stated that she wished to continue to pursue active treatment; however, she did voice some concerns to Dr. Chew that if her chances were futile that she would not want to be intubated. However, her MOLST was not changed, she was still active full code and would request intubation. However, given the severity of her respiratory distress and organ failure, I did have additional discussion with the family and explained her complete change in status in a such a short period of time. Her niece, Naila who is her health care proxy, agreed that her prognosis appeared very grave and that her aunt would not want to live permanently ventilated. I did explain that with the severity of her respiratory status and organ system shutting down and lack of urine output that even intubation at this point would likely not result in a favorable outcome. Also given the severity of her cancer diagnosis that it appeared that our interventions would likely be futile. The patient's niece/HC proxy agreed to make the patient DNR/DNI. She was placed on morphine IV for comfort. The BiPAP was removed. She did have several family members at the bedside during this time. The patient began having quite agonal respirations and bradycardia, and ultimately the patient did at 14:11 on 05/31/19. Please refer to progress note earlier today for her complete review of systems and physical exam earlier in the day. PHYSICAL EXAM: Pupils fixed and dilated, no spontaneous respirations, asystole on monitor. DISPOSITION: . TIME SPENT: Approximately 75 minutes on care planning and family consultation and [facility] Registry EDRS completion. BASSEM VARGAS NP [id number]/CPS #: [id number] MTDDuane
--- NOTE | 2019-06-01 10:30 | CONS ---
MEDICAL ONCOLOGY CONSULTATION NOTE: DATE OF CONSULT: 05/31/19 REASON FOR CONSULTATION: Severe weakness, underlying squamous cell carcinoma of the head and neck. HISTORY OF PRESENT ILLNESS: Kenzie Stanford is an 79-year-old female who had noticed pain in the left cheek in August 2018. She was seen by Dr. Medel in [place] on referral from clinic physician being found to have left buccal membrane lesion and left neck mass. Biopsy of both confirmed squamous cell carcinoma. CT/PET scan showed localized disease with extensive invasions in the maxillary sinus as well as the left submandibular lymph node. On 09/28/19, she had wide excision of primary along with left suprahyoid neck dissection. There was concern intraoperatively from extent of disease. Pathology revealed invasive squamous cell carcinoma with a positive margin. There was a 3.2 cm lymph node with extracapsular extension. In September 2018, less than 1 month later, there was a growing nodule in the jaw , which was biopsied positive for recurrence. MRI scan revealed residual disease invading into the left mandible. She had repeat resection by Dr. Carbone at [facility] on 12/07/18, which was notable for a disease with 1 lymph node and very close margins. She had a pectoralis flap reconstruction. She had poor wound healing postoperatively and had to go back for a debridement surgery on 01/18/19. She was seen in consultation at [facility] by Dr. Aragon of radiation therapy with a concern for residual/ recurrent disease on exam. CT simulation was performed. 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 She was referred to medical oncology for further consideration. She was seen by Dr. Mcdonald in our office and given 1 dose of pembrolizumab. She subsequently was seen in consultation on by Dr. Hand of medical oncology at [facility]. She received a two-third dosage of pembrolizumab there and was also referred by Dr. Hand for radiation therapy at [place]. This referral was for palliative radiation therapy at the site of continued local disease in the head and neck region. She was felt not to be a curative candidate, but might benefit from local radiation therapy. She has received a course of radiation therapy, which was due to finish on 05/29/19, which she continues from 05/26/19 with 1 dose remaining at the time of this admission. During this radiation therapy, she has tolerated it poorly and she has lost a total of approximately 80 pounds since her original diagnosis. There was at one point a thought of placing a PEG tube, but for technical reasons per the patient this was never placed and was never reconsidered as best as she knows. She had been taking very little in the course of any type of nutrition with no appetite and difficulty with soreness in the throat and swallowing. She is unable to tolerate solid foods and is only taking 1 can of Ensure per day. Recently diagnosed with bilateral DVTs just a week prior to admission and was started on Eliquis. She also had received a course of antibiotics for infection to her left neck and was completing a 14-day Keflex dose, which was initially started on 05/11/19. In the emergency room, she was found to be hypotensive. Blood pressure in the 50s and systolic. She met criteria for severe sepsis with hypotension, a mildly elevated lactic acid, tachypnea, and hypoxia. She was treated with fluid bolus along with being started on antibiotics. PAST MEDICAL HISTORY: Otherwise, significant for: 1. Hypothyroidism. 2. Diverticulosis. 3. History of breast cancer, status post lumpectomy and radiation therapy in 2012. 4. Status post hysterectomy. 5. Status post appendectomy. 6. Status post tonsillectomy. 7. Status post herniorrhaphy. 8. Status post bowel resection. MEDICATIONS: At home prior to admission: 1. Oxycodone. 2. Morphine ER. 3. Levothyroxine. 4. Eliquis. ALLERGIES: None. FAMILY HISTORY: Brother with leukemia. No other family history of malignancies. SOCIAL HISTORY: The patient was a smoker; quit 25 years ago, a pack and a half per day for 44 years. No alcohol. She is retired and lives alone. REVIEW OF SYSTEMS: Marked weight loss. Inability to tolerate solid foods. Significant pain in her left face and neck. Marked difficulty swallowing. No shortness of breath or chest pain. Denies any significant pain elsewhere. Review of systems is limited by the patient's level of alertness. PHYSICAL EXAM: An 79-year-old female. Vital signs are documented in the chart. HEENT: PERRL, EOMI. No scleral icterus. Extremely dry mucous membranes. Neck: Open wound with significant drainage. Lungs: Decreased breath sounds without rales, rhonchi, or wheezes. Heart: Regular rate and rhythm without murmurs, rubs, or gallops. Abdomen: Soft, nontender without masses or organomegaly. Extremities: Purplish discoloration of toes with feet being quite cool. Pulses are present. Pitting edema bilaterally. DIAGNOSTIC STUDIES/LAB DATA: Imaging Studies: CTA of the chest reveals significant airspace disease bilaterally. No obvious masses, but difficult to tell based on the underlying amount of airspace disease. Subsequent to admission has had aorta with a runoff CTA study along with an extremity arterial study looking at the reason for marked changes in her feet. Laboratory Studies: On admission, white count of 11,800 and subsequently slightly higher. No significant anemia. Platelets are normal. Chemistry studies with normal renal function and hepatic function. Albumin is extremely low at 1.7. 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 PET scan from several months ago with a questionable lung nodule, which was mildly hypermetabolic. This would be her only site of metastatic disease. However, she is unable in my mind to receive further treatment for her head and neck cancer certainly at this time given her severe malnutrition. In addition, she would have inability to tolerate any systemic therapy given the open wound in the neck and severe weakness following a prolonged course of radiation therapy. If there is any chance of her improving, she would need to be referred back to her team at [facility] in [place] and would likely require undergoing a long rehabilitation course and would certainly need enteral nutrition. In addition, there are significant issues with her leg that may need a vascular surgery evaluation. I would recommend at this time that she be transferred to [facility] under the care of her previous medical oncologist who knows her much better than we know her here, Dr. Hand. Alternatively, one could decide on a more palliative approach as she is unlikely to recover significant function no matter how aggressive the therapy that is decided upon. [id number] #: [id number] MTDD
== END 2019-05-31 14:11 | disposition expired | DRG 871 ==
LOC: ED 13:14 → ICU 18:12 → MEDTELE 05-29 22:00 → ICU 05-30 12:48
PROVIDERS: ADMIT Internal Medicine; ATTEND Internal Medicine
DX: A41.9 Sepsis, unspecified organism (principal); E43 Unspecified severe protein-calorie malnutrition; J69.0 Pneumonitis due to inhalation of food and vomit; R65.21 Severe sepsis with septic shock; J96.90 Respiratory failure, unspecified, unspecified whether with hypoxia or hypercapnia; N17.9 Acute kidney failure, unspecified; E87.2 Acidosis; L03.211 Cellulitis of face; I82.401 Acute embolism and thrombosis of unspecified deep veins of right lower extremity; J90 Pleural effusion, not elsewhere classified; E03.9 Hypothyroidism, unspecified; C06.0 Malignant neoplasm of cheek mucosa; C44.42 Squamous cell carcinoma of skin of scalp and neck; R19.7 Diarrhea, unspecified; E83.51 Hypocalcemia; S11.90XA Unspecified open wound of unspecified part of neck, initial encounter; C76.0 Malignant neoplasm of head, face and neck; E86.0 Dehydration; R13.10 Dysphagia, unspecified; I73.9 Peripheral vascular disease, unspecified; R82.71 Bacteriuria; Z66 Do not resuscitate; Z92.3 Personal history of irradiation; Z90.710 Acquired absence of both cervix and uterus; Z90.49 Acquired absence of other specified parts of digestive tract; Z85.3 Personal history of malignant neoplasm of breast; Z83.3 Family history of diabetes mellitus; Z82.49 Family history of ischemic heart disease and other diseases of the circulatory system; Z80.6 Family history of leukemia; Z87.891 Personal history of nicotine dependence; Z11.9 Encounter for screening for infectious and parasitic diseases, unspecified; Z98.42 Cataract extraction status, left eye; Z98.41 Cataract extraction status, right eye; Z92.21 Personal history of antineoplastic chemotherapy; Z68.21 Body mass index [BMI] 21.0-21.9, adult
CPT/HCPCS: 36415; 36600; 71045; 71275; 75635; 76705; 80048; 80053; 81003; 81015; 82330; 82533; 82550; 82803; 83605; 83735; 83880; 84100; 84134; 84443; 84484; 85025; 85610; 85730; 86140; 87040; 87070; 87077; 87086; 87106; 87186; 87205; 87640; 87641; 87899; 93005; 93922; 94660; 99285; A9270-GY; G8978-GP-CK; G8979-GP-CI; J0456; J0610; J1940; J2060; J2270; J2405; J2543; Q9967